=== PATIENT | female | born 1930 | race Caucasian/White ===

== ENCOUNTER 2017-09-02 10:48 | Inpatient (IN) ==
[2017-09-02] MEDS ORDERED: Ondansetron 4 MG/2 ML VIAL IVP ONE (11:34)
[2017-09-02] MEDS ORDERED: *HR* Morphine 2 MG/ML SYRINGE IVP ONE (11:34)
[2017-09-02] MEDS ORDERED: 0.9 % Sodium Chloride 500 ML IVC ONE (11:34)
--- NOTE | 2017-09-02 11:37 | Emergency Department Note ---
Disposition Clinical Impression: Pyelonephritis, Unable to ambulate Back pain Qualifiers: Back pain location: back pain in unspecified location Chronicity: acute Back pain laterality: left Qualified Code(s): M54.9 - Dorsalgia, unspecified CKD (chronic kidney disease) Qualifiers: Chronic kidney disease stage: stage 3 (moderate) Qualified Code(s): N18.3 - Chronic kidney disease, stage 3 (moderate) Disposition: Admitted As Inpatient Condition: Good Back Pain HPI - General Chief Complaint: ED Back Pain/Injury Stated Complaint: back pain Time Seen by Provider: 09/02/17 10:53 Source: patient Limitations: no limitations Nursing Notes Reviewed: Yes Vital Signs Reviewed: Yes - History of Present Illness HPI Narrative: Patient presents today for evaluation of back pain. Patient was seen 2 days ago and received a CT scan of her abdomen and pelvis as well as x-rays of her thoracic and lumbar spine. Patient had improved in the emergency department and was sent home. Patient states that the lidocaine patches she was sent home with have not been helping her pain at all. Patient lives at home alone is only able to take care of all of her activities of daily living. Patient symptoms started on Monday when she was at the counter washing. She states that there was no fall or no specific movement that causes the pain but that her pain is now worse anytime she moves. Pain has significantly limited her ability to do things. Patient rates pain as a 9 out of 10 in the bed and is having difficulty rolling onto her side or sitting up for evaluation. Pain with hip flexion. No radiation of pain. No worse after food or fluids Patient has not had any chest pain or shortness of breath. Patient states that she has had some constipation and decreased urinary output. Patient does not have a rash. No fever or chills. - Related Data Home Medications Medication Instructions Recorded Confirmed Aspirin [Lo-Dose Aspirin EC] 81 mg PO DAILY 10/02/16 09/02/17 Atorvastatin [Lipitor] 40 mg PO HS 10/02/16 09/02/17 Clopidogrel [Plavix] 75 mg PO DAILY 10/02/16 09/02/17 Levothyroxine [Synthroid] 100 mcg PO DAILY 10/02/16 09/02/17 Magnesium Oxide [Magnesium] 800 mg PO BID 10/02/16 09/02/17 Multivitamin [Multivitamins] 1 tab PO DAILY 10/02/16 09/02/17 Pantoprazole Sodium [Protonix] 40 mg PO DAILY 10/02/16 09/02/17 Ropinirole HCl [Requip] 0.5 mg PO HS 10/02/16 09/02/17 Ergocalciferol (VITAMIN D2) 50,000 unit PO SA 10/04/16 09/02/17 [Vitamin D2] Gabapentin [Neurontin] 200 mg PO BID 10/04/16 09/02/17 HYDROcodone/Acet 5/325 mg [[place] 1 tab PO Q6H PRN 10/04/16 09/02/17 5-325 mg] Acetaminophen/Diphenhydramine 2 tab PO HS PRN 09/02/17 09/02/17 [Acetaminophen Pm Caplet] Lidocaine Patch [Lidoderm 5% patch] 1 patch TP DAILY PRN 09/02/17 09/02/17 Metoprolol XL (24 HR) Succ [Toprol 12.5 mg PO DAILY 09/02/17 09/02/17 XL] Previous Rx's Medication Instructions Recorded LORazepam [Ativan] 0.5 mg PO QID PRN #30 tablet 03/27/16 Furosemide [Lasix] 20 mg PO DAILY #30 tablet 10/05/16 Nitroglycerin 0.4 mg SL Q5MIN PRN 30 Days 10/05/16 tab.subl Allergies Allergy/AdvReac Type Severity Reaction Status Date / Time metformin AdvReac See Verified 11/29/16 14:40 Comments Sulfa (Sulfonamide AdvReac Confusion Verified 11/29/16 14:40 Antibiotics) Tizanidine AdvReac Drowsy Verified 11/29/16 14:40 All systems ED: reviewed and negative except as stated. Constitutional: Denies: fever, chills Cardiovascular: Denies: chest pain Gastrointestinal: Denies: abdominal pain, nausea, vomiting Genitourinary: Reports: other (Decreased urinary output). Denies: urgency, frequency Musculoskeletal: Reports: back pain Integumentary: Denies: rash, abrasion, lesions Neurological: Reports: weakness (Secondary to back pain). Denies: headache Psychiatric: Denies: anxiety, depression Endocrine: Denies: fatigue Past Medical History - Past Medical History Medical history: Reports: arthritis, coronary artery disease, GERD, hyperlipidemia, hypertension, migraine, myocardial infarction Surgical history: Reports: , cholecystectomy, hip replacement, hysterectomy, knee replacement Psychiatric history: Reports: anxiety, depression EXTRACORPOREAL CIRCULATION SPECIALIST history: Reports: no EXTRACORPOREAL CIRCULATION SPECIALIST history - Social History Smoking Status: Former smoker Smokeless Tobacco Status: No Alcohol use: Reports: none Drug use: Reports: none Physical Exam - General Limitations: no limitations General appearance: alert, in no apparent distress Course Course Narrative: General appearance: NAD, conversant Eyes: anicteric sclerae, moist conjunctivae; PERRL HENT: Atraumatic; oropharynx clear with moist mucous membranes and no mucosal ulcerations Neck: Normal inspection; Trachea midline; FROM, supple Lungs: CTA, with normal respiratory effort and no intercostal retractions CV: Systolic heart murmur Abdomen: Soft, non-tender; no rebound or gaurding Extremities: No peripheral edema or extremity lymphadenopathy Skin: Normal temperature; no rash, ulcers or lesions Psych: Appropriate mood and affect Neuro: alert and oriented to person, place and time Musculoskeletal: No midline tenderness to the cervical thoracic or lumbar spine. Tenderness to palpation of the left lumbar paraspinal muscles as well as the superficial tissues. No rash present. Patient with wart of 5 strength to the left leg hip flexion secondary to pain. - Reevaluation(s) Reevaluation #1: Patient's pain improved with 4 mg of IV morphine. Patient's culture results from 2 days ago was positive for Escherichia coli as well as enterococcus. Both are sensitive to ampicillin. A dose of Zosyn and has been given in the emergency department. Patient CT scan cannot be performed with IV contrast to rule out any other complications. Renal ultrasound has been ordered. Hospitalist team paged Time: 12:33 - Consultations Consultation #1: Discussed with hospitalist. Zosyn changed to ampicillin 2 g. Zosyn had not yet been given. Blood Cultures requested and obtained. Time: 13:00 Vital Signs Temperature 98.4 F 09/02/17 10:49 Pulse Rate 70 09/02/17 10:49 Respiratory Rate 18 09/02/17 10:49 Blood Pressure 128/69 09/02/17 10:49 O2 Sat by Pulse Oximetry 99 09/02/17 10:49 Temperature 98.0 F 09/02/17 14:39 Pulse Rate 70 09/02/17 14:39 Respiratory Rate 14 09/02/17 14:39 Blood Pressure 136/75 09/02/17 14:39 O2 Sat by Pulse Oximetry 92 09/02/17 14:39 Oxygen Delivery Oxygen Delivery Room Air Back Pain/Injury - Lab Data Result diagrams: 09/02/17 11:42 09/02/17 11:42 Lab Results 09/02/17 09/02/17 09/02/17 Range/Units 11:42 11:42 11:42 WBC 5.0 (4.3-11.1) K/mcL RBC 3.40 L (3.82-4.97) M/mcL Hgb 11.1 L D (11.5-15.4) g/dL Hct 34.4 L (35.3-44.9) % MCV 101.2 H (83.0-100.0) fL MCH 32.6 (28.0-33.3) pg MCHC 32.3 (31.6-35.5) g/dL RDW 12.9 (11.5-14.5) % Plt Count 158 (140-400) K/mcL MPV 9.7 (9.4-12.4) fL Immature Gran % 0.2 (0-4) % Seg Neutrophils % 71.0 % Lymphocytes % 16.8 % Monocytes % 8.2 % Eosinophils % 3.2 % Basophils % 0.6 % Neutrophils # 3.6 (1.6-8.9) K/mcL Lymphocytes # 0.8 (0.6-4.6) K/mcL Monocytes # 0.4 (0.0-1.3) K/mcL Eosinophils # 0.2 (0.0-0.6) K/mcL Basophils # 0.0 (0.0-0.2) K/mcL Immature Plt Fraction 3.1 (1.1-6.1) % Sodium 138 (136-145) mEq/L Potassium 5.0 H (3.5-4.5) mEq/L Chloride 106 (98-109) mEq/L Carbon Dioxide 25 (19-29) mEq/L BUN 40 H (7-20) mg/dL Creatinine 1.37 H (0.57-1.11) mg/dL Est GFR ( Amer) 44 L (> 60) Est GFR (Non-Af Amer) 36 L (> 60) BUN/Creatinine Ratio 29 H (6-26) Glucose 125 H (70-99) mg/dL Calculated Osmolality 297 (280-300) Calcium 8.9 (8.6-10.8) mg/dL Magnesium 2.1 (1.6-2.6) mg/dL Total Bilirubin 0.4 (0.2-1.2) mg/dL Direct Bilirubin 0.2 (0.0-0.5) mg/dL Indirect Bilirubin 0.2 (0.0-1.2) mg/dL AST 30 (5-34) Units/L ALT 30 (0-55) Units/L Alkaline Phosphatase 191 H (38-126) Units/L Troponin I 0.08 H* (0-0.03) ng/mL Serum Total Protein 7.0 (6.0-8.3) g/dL Albumin 3.1 L (3.5-5.0) g/dL Globulin 3.9 H (2.4-3.5) g/dL Albumin/Globulin Ratio 0.8 L (1.1-2.2) Urine Color (Yellow) Urine Clarity (Clear) Urine pH (5.0-8.0) pH Units Ur Specific [place] (1.010-1.025) Urine Protein (Neg-Trace) mg/dL Urine Glucose (UA) (Normal) mg/dL Urine Ketones (Negative) mg/dL Urine Blood (Negative) Urine Nitrite (Negative) Urine Bilirubin (Negative) Urine Urobilinogen (Normal) mg/dL Ur Leukocyte Esterase (Negative) Urine Microscopic RBC (0-3) per hpf Urine Microscopic WBC (0-3) per hpf Ur Squamous Epith Cells (None-Few) per lpf Urine Bacteria (None-Few) per hpf Hyaline Casts (None-Few) per lpf Ur Culture Indicated? (NO) 09/02/17 Range/Units 11:56 WBC (4.3-11.1) K/mcL RBC (3.82-4.97) M/mcL Hgb (11.5-15.4) g/dL Hct (35.3-44.9) % MCV (83.0-100.0) fL MCH (28.0-33.3) pg MCHC (31.6-35.5) g/dL RDW (11.5-14.5) % Plt Count (140-400) K/mcL MPV (9.4-12.4) fL Immature Gran % (0-4) % Seg Neutrophils % % Lymphocytes % % Monocytes % % Eosinophils % % Basophils % % Neutrophils # (1.6-8.9) K/mcL Lymphocytes # (0.6-4.6) K/mcL Monocytes # (0.0-1.3) K/mcL Eosinophils # (0.0-0.6) K/mcL Basophils # (0.0-0.2) K/mcL Immature Plt Fraction (1.1-6.1) % Sodium (136-145) mEq/L Potassium (3.5-4.5) mEq/L Chloride (98-109) mEq/L Carbon Dioxide (19-29) mEq/L BUN (7-20) mg/dL Creatinine (0.57-1.11) mg/dL Est GFR ( Amer) (> 60) Est GFR (Non-Af Amer) (> 60) BUN/Creatinine Ratio (6-26) Glucose (70-99) mg/dL Calculated Osmolality (280-300) Calcium (8.6-10.8) mg/dL Magnesium (1.6-2.6) mg/dL Total Bilirubin (0.2-1.2) mg/dL Direct Bilirubin (0.0-0.5) mg/dL Indirect Bilirubin (0.0-1.2) mg/dL AST (5-34) Units/L ALT (0-55) Units/L Alkaline Phosphatase (38-126) Units/L Troponin I (0-0.03) ng/mL Serum Total Protein (6.0-8.3) g/dL Albumin (3.5-5.0) g/dL Globulin (2.4-3.5) g/dL Albumin/Globulin Ratio (1.1-2.2) Urine Color Yellow (Yellow) Urine Clarity Cloudy A (Clear) Urine pH 6.0 (5.0-8.0) pH Units Ur Specific [place] 1.023 (1.010-1.025) Urine Protein Negative (Neg-Trace) mg/dL Urine Glucose (UA) Normal (Normal) mg/dL Urine Ketones Negative (Negative) mg/dL Urine Blood Negative (Negative) Urine Nitrite Negative (Negative) Urine Bilirubin Negative (Negative) Urine Urobilinogen Normal (Normal) mg/dL Ur Leukocyte Esterase Moderate H (Negative) Urine Microscopic RBC 0-3 (0-3) per hpf Urine Microscopic WBC 5-15 H (0-3) per hpf Ur Squamous Epith Cells Many H (None-Few) per lpf Urine Bacteria None Seen (None-Few) per hpf Hyaline Casts None Seen (None-Few) per lpf Ur Culture Indicated? YES A (NO) Attestation Statement - Attestation Attestation: I examined this patient and my medical decision-making was reviewed with the Resident Physician. I agree with the documented findings, disposition and treatment plan as described except to the extent set forth below. Back pain. Urine culture suggesting underlying urinary tract infection. Possible pyelonephritis. Plan to admit for further evaluation of urinary tract infection in the setting of worsening back pain.
[2017-09-02 11:49] LABS: Basophils % 0.6 %; Eosinophils # 0.2 K/mcL (0.0-0.6); Eosinophils % 3.2 %; Hematocrit 34.4 % (35.3-44.9); Immature Granulocytes % 0.2 % (0-4); Immature Platelets 3.1 % (1.1-6.1); Lymphocytes # 0.8 K/mcL (0.6-4.6); Lymphocytes % 16.8 %; Mean Corpuscular HGB Conc 32.3 g/dL (31.6-35.5); Mean Corpuscular Hemoglobin 32.6 pg (28.0-33.3); Mean Corpuscular Volume 101.2 fL (83.0-100.0); Mean Platelet Volume 9.7 fL (9.4-12.4); Monocytes # 0.4 K/mcL (0.0-1.3); Monocytes % 8.2 %; Neutrophils # 3.6 K/mcL (1.6-8.9); Platelet Count 158 K/mcL (140-400); Red Cell Distribution Width 12.9 % (11.5-14.5)
[2017-09-02 11:50] LABS: Hemoglobin 11.1 g/dL (11.5-15.4)
[2017-09-02 12:01] LABS: Albumin 3.1 g/dL (3.5-5.0); Albumin/Globulin Ratio 0.8 (1.1-2.2); Bilirubin,Direct 0.2 mg/dL (0.0-0.5); Bilirubin,Indirect 0.2 mg/dL (0.0-1.2); Bilirubin,Total 0.4 mg/dL (0.2-1.2); Calcium 8.9 mg/dL (8.6-10.8); Globulin 3.9 g/dL (2.4-3.5); Magnesium 2.1 mg/dL (1.6-2.6)
[2017-09-02 12:07] LABS: Bilirubin,Urine Negative (Negative); Blood,Urine Negative (Negative); Clarity,Urine Cloudy (Clear); Color,Urine Yellow (Yellow); Glucose,Urine (UA) Normal (Normal); Ketones,Urine Negative (Negative); Leukocyte Esterase,Urine Moderate (Negative); Nitrite,Urine Negative (Negative); Protein,Urine Negative (Neg-Trace); Specific Gravity,Urine 1.023 (1.010-1.025); Urobilinogen,Urine Normal (Normal)
[2017-09-02 12:09] LABS: Bacteria,Urine None Seen per hpf (None-Few); Hyaline Casts,Urine None Seen per lpf (None-Few); RBC,Urine 0-3 per hpf (0-3); Squamous Epithelial Cell,Urine Many per lpf (None-Few)
[2017-09-02] MEDS ORDERED: Piperacillin/Tazobactam 3.375 GM in D5% in Water 50 ML IVPB ONE (12:26)
[2017-09-02] MEDS ORDERED: Ampicillin 2 GM in 0.9 % Sodium Chloride Mini Bag 100 ML IVPB ONE (12:59)
[2017-09-02] MEDS ORDERED: AMPICILLIN IVPB ONE (15:00)
[2017-09-02] MEDS ORDERED: SODIUM CHLORIDE 0.9% IVPB ONE (15:00)
[2017-09-02] MEDS ORDERED: Naloxone 0.4 MG/ML INJ IVP PRN (15:48)
[2017-09-02] MEDS ORDERED: *HR* LORazepam 0.5 MG TABLET PO PRN (15:51)
--- NOTE | 2017-09-02 15:52 | Internal Med History&Physical ---
Date of Encounter: 09/02/17 Time of Encounter: 15:52 Assessment and Plan (1) Elevated troponin Current visit: Yes Status: Acute Likely related to underlying infection, demand ischemia. (2) Back pain Current visit: Yes Status: Acute Probably related to left-sided pyelonephritis. Qualifiers: Back pain location: back pain in unspecified location Chronicity: acute Back pain laterality: left Qualified Code(s): M54.9 - Dorsalgia, unspecified (3) Pyelonephritis Current visit: Yes Status: Acute Urinalysis shows 5-15 WBC, moderate leukocyte esterase. Follow-up urine culture. Urine culture from August 31 grows Enterococcus faecalis and Escherichia coli. Continue IV ampicillin. IV hydration. Pain control with when necessary Percocet and IV morphine. Supportive care. We will repeat CT abdomen/pelvis if indicated. Renal ultrasound shows no obstructive nephropathy. (4) CKD (chronic kidney disease) Current visit: Yes Status: Chronic Serum creatinine noted to be at baseline, 1.37 today. Noted to have mild hyperkalemia. Continue to monitor closely. Renal diet. Qualifiers: Chronic kidney disease stage: stage 3 (moderate) Qualified Code(s): N18.3 - Chronic kidney disease, stage 3 (moderate) (5) Aortic stenosis, severe Current visit: Yes Status: Chronic Status post aortic valve replacement. (6) Congestive heart failure Current visit: Yes Status: Chronic Not in acute exacerbation. Continue home medications. Hold Lasix for now. Qualifiers: Congestive heart failure type: combined Congestive heart failure chronicity : chronic Qualified Code(s): I50.42 - Chronic combined systolic (congestive) and diastolic (congestive) heart failure (7) CAD (coronary artery disease) Current visit: Yes Status: Chronic Qualifiers: Coronary Disease-Associated Artery/Lesion type: [place] artery [place] vs. transplanted heart: [place] heart Associated angina: without angina Qualified Code(s): I25.10 - Atherosclerotic heart disease of [place] coronary artery without angina pectoris Internal Medicine - H&P: HPI Chief complaint: Left sided back pain Admitted From: Emergency Dept Plans for Post Hospital Care: Home History of present illness: Ms. Salcido is a 87 year old female with history of hypertension, chronic kidney disease, CHF presents with complaints of sudden onset of left flank and low back pain. Patient reports being in her usual state of health until 5 days ago when she was doing her laundry and developed a sudden onset of left-sided flank and low back pain, nonradiating, which has been progressively worsening, currently 10/10 in intensity. Her pain is constant and not associated with food intake but gets worse on turning in bed and getting out of bed. She denies fever, chills, nausea, vomiting, suprapubic pain. No hematuria, urinary frequency or urgency but reports decreased urine output over the last few days. She presented to the emergency room 2 days ago with these complaints, had x- rays of her lumbar spine and CT abdomen done which showed no acute abnormality and patient was discharged home. Her urine culture was sent at the time which currently is positive for enterococcus faecalis and Escherichia coli. Past Med Surg Social Fam HX - Past Medical History Medical history: arthritis, CHF, coronary artery disease, GERD, hyperlipidemia, hypertension, myocardial infarction, renal disease Psychiatric history: anxiety, depression - Past Surgical History Surgical History: , cholecystectomy, heart valve replacement (aortic valve- TAVR), hysterectomy, knee replacement (B/L) - Social History Smoking Status: Former smoker Smokeless Tobacco Status: No Alcohol use: none Drug use: none Occupational status: retired Current living situation: Home - Independent Activity Level: Independent ambulation Recent Out of Country Travel Within the Last 8 Weeks: No Exposure or Possible Exposure to Illness During Travel: No - Family History Mother Living Status: Hx Family Cancer: Yes Father Hx Family Cardiac Disorders: Yes Internal Medicine - H&P: Meds LORazepam [Ativan] 0.5 mg PO QID PRN #30 tablet 03/27/16 [Rx] Aspirin [Lo-Dose Aspirin EC] 81 mg PO DAILY 10/02/16 [History] Atorvastatin [Lipitor] 40 mg PO HS 10/02/16 [History] Clopidogrel [Plavix] 75 mg PO DAILY 10/02/16 [History] Levothyroxine [Synthroid] 100 mcg PO DAILY 10/02/16 [History] Magnesium Oxide [Magnesium] 800 mg PO BID 10/02/16 [History] Multivitamin [Multivitamins] 1 tab PO DAILY 10/02/16 [History] Pantoprazole Sodium [Protonix] 40 mg PO DAILY 10/02/16 [History] Ropinirole HCl [Requip] 0.5 mg PO HS 10/02/16 [History] Ergocalciferol (VITAMIN D2) [Vitamin D2] 50,000 unit PO SA 10/04/16 [History] Gabapentin [Neurontin] 200 mg PO BID 10/04/16 [History] HYDROcodone/Acet 5/325 mg [[place] 5-325 mg] 1 tab PO Q6H PRN 10/04/16 [History] Furosemide [Lasix] 20 mg PO DAILY #30 tablet 10/05/16 [Rx] Nitroglycerin 0.4 mg SL Q5MIN PRN 30 Days tab.subl 10/05/16 [Rx] Acetaminophen/Diphenhydramine [Acetaminophen Pm Caplet] 2 tab PO HS PRN [History] Lidocaine Patch [Lidoderm 5% patch] 1 patch TP DAILY PRN 09/02/17 [History] Metoprolol XL (24 HR) Succ [Toprol XL] 12.5 mg PO DAILY 09/02/17 [History] 3 Allergy/AdvReac Type Severity Reaction Status Date / Time metformin AdvReac See Verified 11/29/16 14:40 Comments Sulfa (Sulfonamide AdvReac Confusion Verified 11/29/16 14:40 Antibiotics) Tizanidine AdvReac Drowsy Verified 11/29/16 14:40 All Systems PM: A 10-system review of systems was performed and is negative for pertinent findings except as documented above in the HPI. - Constitutional Constitutional: no chills, no fever(s), no night sweats - EENT Eyes: no change in vision, no discharge, no pain, no photophobia Ears: no ear discharge, no ear pain, no tinnitus Nose, mouth and throat: no dysphagia, no nasal discharge, no neck pain, no sore throat - Cardiovascular Cardiovascular ROS IM: no chest pain, no diaphoresis, no dyspnea, no lightheadedness, no palpitations, no syncope - Respiratory Respiratory: no cough, no dyspnea, no wheezing, no excessive phlegm production - Gastrointestinal Gastrointestinal: no abdominal pain, no diarrhea, no hematemesis, no hematochezia, no melena, no nausea, no vomiting - Genitourinary Genitourinary: no change in urinary stream, no dysuria, no flank pain, no hematuria - Musculoskeletal Musculoskeletal ROS IM: back pain - Integumentary Integumentary IM: no rash, no unusual bruising - Neurological Neurological ROS: no confusion, no convulsions, no focal weakness, no numbness, no tingling, no tremor(s) - Hematologic/Lymphatic Hematologic/Lymphatic: no easy bruising - Constitutional Vitals: Temp Pulse Resp BP Pulse Ox 98.0 F 70 14 136/75 92 09/02/17 14:39 09/02/17 14:39 09/02/17 14:39 09/02/17 14:39 09/02/17 14:39 General appearance: Present: mild distress, A&O X 3, answers questions appropriately - Respiratory Respiratory exam: Present: CTAB. Absent: accessory muscle use, rales, rhonchi, wheezes - Cardiovascular Cardiovascular exam: Present: RRR, +S1, +S2, systolic murmur. Absent: diastolic murmur, gallop, rubs - GI/Abdominal GI/Abdominal exam: Present: normal bowel sounds, soft, no peritoneal signs. Absent: distended, tenderness - Extremities Exam Extremities exam: Present: full ROM, warm, radial pulses palpable and symmetrical. Absent: calf tenderness, cyanotic, pedal edema - Back Exam Back exam: Present: CVA tenderness (L) Additional comments: No midline or vertebral tenderness - Neurological Exam Neurological exam: Present: CN II-XII intact, oriented X3, no focal deficits. Absent: pronater drift, facial droop, speech deficit - Skin Skin exam: Present: dry, intact Internal Med - H&P Results - Labs CBC & Chem 7: 09/03/17 03:37 09/03/17 03:37
[2017-09-02] MEDS ORDERED: 0.9 % Sodium Chloride 1,000 ML IVC SCH (16:00)
[2017-09-02] MEDS: *HR* Morphine 2 MG/ML SYRINGE IVP PRN (17:02)
[2017-09-02] MEDS: *HR* Heparin 5,000 UNIT/ML VIAL SQ SCH (18:49)
[2017-09-02] MEDS: rOPINIRole 0.25 MG TABLET PO SCH (20:57)
[2017-09-02] MEDS ORDERED: AMPICILLIN IVPB SCH (21:00)
[2017-09-02] MEDS ORDERED: SODIUM CHLORIDE 0.9% IVPB SCH (21:00)
[2017-09-03] MEDS: *HR* Morphine 2 MG/ML SYRINGE IVP PRN ×4 (02:01→21:55)
[2017-09-03] MEDS: AMPICILLIN IVPB SCH ×4 (02:44→20:19)
[2017-09-03] MEDS: SODIUM CHLORIDE 0.9% IVPB SCH ×4 (02:44→20:19)
[2017-09-03 04:16] LABS: Basophils % 0.5 %; Eosinophils # 0.3 K/mcL (0.0-0.6); Eosinophils % 6.7 %; Hemoglobin 10.6 g/dL (11.5-15.4); Immature Granulocytes % 0.3 % (0-4); Lymphocytes % 24.8 %; Mean Corpuscular HGB Conc 31.2 g/dL (31.6-35.5); Mean Corpuscular Hemoglobin 31.7 pg (28.0-33.3); Mean Corpuscular Volume 101.8 fL (83.0-100.0); Mean Platelet Volume 10.4 fL (9.4-12.4); Monocytes # 0.4 K/mcL (0.0-1.3); Monocytes % 11.1 %; Neutrophils # 2.2 K/mcL (1.6-8.9); Platelet Count 140 K/mcL (140-400); Red Blood Count 3.34 M/mcL (3.82-4.97); Red Cell Distribution Width 12.8 % (11.5-14.5); Segmented Neutrophils % 56.6 %
[2017-09-03 04:27] LABS: Calcium 9.1 mg/dL (8.6-10.8); Potassium 4.9 mEq/L (3.5-4.5)
[2017-09-03] MEDS: *HR* Heparin 5,000 UNIT/ML VIAL SQ SCH ×2 (05:10→18:39)
[2017-09-03] MEDS: Metoprolol XL (24 HR) Succ 25 MG TAB.ER.24H PO SCH (08:18)
[2017-09-03] MEDS: Multivit/Ca/Min/Fe/FA 1 TAB TABLET PO SCH (08:18)
[2017-09-03] MEDS: Aspirin Enteric Coated 81 MG Tablet PO SCH (08:18)
--- NOTE | 2017-09-03 12:11 | Internal Med Progress Note ---
Date of Encounter: 09/03/17 Time of Encounter: 12:08 - Assessment and plan (1) Back pain Current Visit: Yes Status: Acute Assessment and plan: Likely related to pyelonephritis. However, patient continues to report persistent back pain despite treatment with IV antibiotics. Will check noncontrast CT of lumbar spine. Pain control with when necessary IV Dilaudid and oral Percocet. Supportive care. Qualifiers: Back pain location: back pain in unspecified location Chronicity: acute Back pain laterality: left Qualified Code(s): M54.9 - Dorsalgia, unspecified (2) Pyelonephritis Current Visit: Yes Status: Acute Assessment and plan: Plan as above. Not septic. Urine culture grows enterococcus, continue IV ampicillin. Blood cultures remain negative. (3) CKD (chronic kidney disease) Current Visit: Yes Status: Chronic Qualifiers: Chronic kidney disease stage: stage 3 (moderate) Qualified Code(s): N18.3 - Chronic kidney disease, stage 3 (moderate) (4) Aortic stenosis, severe Current Visit: Yes Status: Chronic (5) Congestive heart failure Current Visit: Yes Status: Chronic Qualifiers: Congestive heart failure type: combined Congestive heart failure chronicity : chronic Qualified Code(s): I50.42 - Chronic combined systolic (congestive) and diastolic (congestive) heart failure (6) CAD (coronary artery disease) Current Visit: Yes Status: Chronic Qualifiers: Coronary Disease-Associated Artery/Lesion type: [place] artery [place] vs. transplanted heart: [place] heart Associated angina: without angina Qualified Code(s): I25.10 - Atherosclerotic heart disease of [place] coronary artery without angina pectoris - Subjective Interval history: Continues to report left flank/low back pain; could not sleep well last night due to pain; no fever/chills, nausea, vomiting; - Constitutional Vitals: Temp Pulse Resp BP Pulse Ox 97.5 F L 70 14 95/56 98 09/03/17 10:51 09/03/17 10:51 09/03/17 10:51 09/03/17 10:51 09/03/17 10:51 General appearance: Present: A&O X 3, answers questions appropriately - Respiratory Respiratory exam: Present: CTAB. Absent: accessory muscle use, rales, rhonchi, wheezes - Cardiovascular Cardiovascular exam: Present: RRR, +S1, +S2, systolic murmur. Absent: diastolic murmur, gallop, rubs - GI/Abdominal GI/Abdominal exam: Present: normal bowel sounds, soft, no peritoneal signs. Absent: distended, tenderness - Extremities Exam Extremities exam: Present: full ROM, warm, radial pulses palpable and symmetrical. Absent: calf tenderness, cyanotic, pedal edema - Back Exam Back exam: Present: CVA tenderness (L) Internal Medicine: Result - Labs CBC & Chem 7: 09/03/17 03:37 09/03/17 03:37 Labs: Short CBC 09/03/17 Range/Units 03:37 WBC 3.9 L (4.3-11.1) K/mcL Hgb 10.6 L (11.5-15.4) g/dL Hct 34.0 L (35.3-44.9) % Plt Count 140 (140-400) K/mcL Neutrophils # 2.2 (1.6-8.9) K/mcL BMP 09/03/17 03:37 Sodium 138 Potassium 4.9 H Chloride 106 Carbon Dioxide 27 BUN 31 H Creatinine 1.36 H Glucose 88 Calcium 9.1 Consult Discharge Plan - Plan Referrals: Ramsey Chase MD [Primary Care Provider] -
[2017-09-03] MEDS: rOPINIRole 0.25 MG TABLET PO SCH (20:19)
[2017-09-03] MEDS: Ondansetron 4 MG/2 ML VIAL IVP PRN (23:30)
[2017-09-04] MEDS: AMPICILLIN IVPB SCH ×2 (02:58→10:35)
[2017-09-04] MEDS: SODIUM CHLORIDE 0.9% IVPB SCH ×2 (02:58→10:35)
[2017-09-04] MEDS: *HR* Heparin 5,000 UNIT/ML VIAL SQ SCH ×2 (05:31→17:10)
[2017-09-04] MEDS: *HR* Morphine 2 MG/ML SYRINGE IVP PRN (06:04)
[2017-09-04] MEDS: Ondansetron 4 MG/2 ML VIAL IVP PRN (08:10)
[2017-09-04] MEDS: Acetaminophen 325 MG TABLET PO PRN (08:14)
[2017-09-04] MEDS: Aspirin Enteric Coated 81 MG Tablet PO SCH (10:34)
[2017-09-04] MEDS: Metoprolol XL (24 HR) Succ 25 MG TAB.ER.24H PO SCH (10:34)
[2017-09-04] MEDS: Multivit/Ca/Min/Fe/FA 1 TAB TABLET PO SCH (10:35)
[2017-09-04] MEDS: *HR* OxyCODONE Immed Rel 5 MG TABLET PO PRN (10:48)
--- NOTE | 2017-09-04 13:10 | Electrocardiograph Report ---
[address] [place] [address] Test Date: 2017-09-03 Pat Name: Amanda Salcido Department: 115 Room: 3A37 Gender: F [employer]: HSIV : [id number] Requested By: Claudine Tyler Order Number: [id number] Reading MD: Priscila Brian Measurements Intervals [place] Rate: 67 P: 44 [place]: 188 QRS: -69 QRSD: 180 T: 102 QT: 479 QTc: 495 Interpretive Statements ELECTRONIC VENTRICULAR PACEMAKER ABNORMAL RHYTHM ECG Electronically Signed On 09-04-2017 12:51:29 EST by Priscila Brian
--- NOTE | 2017-09-04 14:31 | Internal Med Progress Note ---
Date of Encounter: 09/04/17 Time of Encounter: 14:29 - Assessment and plan (1) Acute cystitis Current Visit: Yes Status: Acute Assessment and plan: With enterococcus. Patient does not appear to be having pyelonephritis as she does not have any fever, leukocytosis or any major in findings concerning for pyelonephritis. Most likely dealing with lower urinary tract infection. Will place patient on oral amoxicillin. Will complete 5 more days of antibiotics. Qualifiers: Hematuria presence: without hematuria Qualified Code(s): N30.00 - Acute cystitis without hematuria (2) Back pain Current Visit: Yes Status: Acute Assessment and plan: Acute on chronic back pain. Lumbar spine CT severe multilevel spondylosis and moderate central stenosis at L3-4 and L4-5. There is also disc protrusion at L4 -5 on the right. This is most likely cause of patient's back pain. Would recommend outpatient follow-up with pain management to see if she is a candidate for epidural injections to control her pain. Currently patient does not have any focal deficits. Qualifiers: Back pain location: back pain in unspecified location Chronicity: acute Back pain laterality: left Qualified Code(s): M54.9 - Dorsalgia, unspecified (3) Pyelonephritis Current Visit: Yes Status: Ruled-out Assessment and plan: No clinical or imaging findings concerning for pyelonephritis. (4) Aortic stenosis, severe Current Visit: Yes Status: Chronic Assessment and plan: Continue home medications. Follow up with cardiology as outpatient (5) CAD (coronary artery disease) Current Visit: Yes Status: Chronic Assessment and plan: On aspirin, Plavix and statin. No chest pain. Qualifiers: Coronary Disease-Associated Artery/Lesion type: [place] artery [place] vs. transplanted heart: [place] heart Associated angina: without angina Qualified Code(s): I25.10 - Atherosclerotic heart disease of [place] coronary artery without angina pectoris (6) CKD (chronic kidney disease) stage 3, GFR 30-59 ml/min Current Visit: Yes Status: Chronic Assessment and plan: stable. Avoid nephrotoxic agents (7) Diarrhea Current Visit: Yes Status: Acute Assessment and plan: Most likely due to adverse reaction from ampicillin use. We will place patient on cultural. If persists, consider checking stool for C. difficile. Qualifiers: Diarrhea type: unspecified type Qualified Code(s): R19.7 - Diarrhea, unspecified (8) Nausea Current Visit: Yes Status: Acute Assessment and plan: Will treat with antiemetics as needed. - Subjective Interval history: Patient seen earlier today. Has multiple complaints including a headache, back pain and abdominal discomfort and nausea and generalized malaise. No fever or chills reported overnight. She has not eaten anything this morning because she is afraid of vomiting it up. Also reports diarrhea. - Constitutional Vitals: Temp Pulse Resp BP Pulse Ox 97.5 F L 66 14 121/67 95 09/04/17 10:23 09/04/17 10:23 09/04/17 10:23 09/04/17 10:23 09/04/17 10:23 General appearance: Present: mild distress, A&O X 3, answers questions appropriately - Neck Neck exam general surgery: Present: supple, trachea midline. Absent: lymphadenopathy - Respiratory Respiratory exam: Present: CTAB. Absent: accessory muscle use, rales, rhonchi, wheezes - Cardiovascular Cardiovascular exam: Present: RRR, +S1, +S2. Absent: diastolic murmur, gallop, rubs, systolic murmur - GI/Abdominal GI/Abdominal exam: Present: normal bowel sounds, soft, no peritoneal signs. Absent: distended, tenderness - Extremities Exam Extremities exam: Present: warm, radial pulses palpable and symmetrical. Absent : calf tenderness, cyanotic, pedal edema - Back Exam Back exam: Present: paraspinal tenderness - Neurological Exam Neurological exam: Present: alert, oriented X3, no focal deficits. Absent: facial droop, speech deficit Internal Medicine: Result - Labs CBC & Chem 7: 09/03/17 03:37 09/03/17 03:37 - Impressions Impressions Lumbar Spine CT 09/03/17 12:12 IMPRESSION: No acute fracture or subluxation. Severe, multilevel spondylosis. There is moderate central stenosis at L3-4 and L4-5. Additionally at L4-5 there is a right paracentral component of disc protrusion, which is difficult to quantitate by non contrasted CT. Impingement on the traversing right L5 nerve root is possible. D/ / Samir Stevenson MD / Samir Stevenson MD Interpreting Provider: Samir Stevenson MD Consult Discharge Plan - Plan Referrals: Ramsey Chase MD [Primary Care Provider] -
[2017-09-04] MEDS: Amoxicillin 500 MG CAPSULE PO SCH ×2 (14:36→20:56)
[2017-09-04] MEDS ORDERED: Nitrofurantoin (BID) 100 MG CAPSULE PO SCH ×2 (17:00)
[2017-09-04] MEDS: Lactobacillus 1 EACH CAP.SPRINK PO SCH (20:56)
[2017-09-04] MEDS: rOPINIRole 0.25 MG TABLET PO SCH (20:56)
[2017-09-05] MEDS: *HR* OxyCODONE Immed Rel 5 MG TABLET PO PRN ×2 (02:14→08:04)
[2017-09-05 04:35] LABS: Basophils % 0.2 %; Eosinophils # 0.1 K/mcL (0.0-0.6); Hematocrit 34.6 % (35.3-44.9); Hemoglobin 10.9 g/dL (11.5-15.4); Immature Granulocytes % 0.2 % (0-4); Lymphocytes # 0.9 K/mcL (0.6-4.6); Lymphocytes % 23.2 %; Mean Corpuscular HGB Conc 31.5 g/dL (31.6-35.5); Mean Corpuscular Hemoglobin 31.8 pg (28.0-33.3); Mean Corpuscular Volume 100.9 fL (83.0-100.0); Mean Platelet Volume 10.3 fL (9.4-12.4); Monocytes # 0.3 K/mcL (0.0-1.3); Monocytes % 7.4 %; Neutrophils # 2.7 K/mcL (1.6-8.9); Platelet Count 146 K/mcL (140-400); Red Blood Count 3.43 M/mcL (3.82-4.97); Red Cell Distribution Width 12.9 % (11.5-14.5)
[2017-09-05 04:45] LABS: Potassium 4.8 mEq/L (3.5-4.5)
[2017-09-05] MEDS: *HR* Heparin 5,000 UNIT/ML VIAL SQ SCH (05:23)
[2017-09-05] MEDS: Amoxicillin 500 MG CAPSULE PO SCH (08:06)
[2017-09-05] MEDS: Multivit/Ca/Min/Fe/FA 1 TAB TABLET PO SCH (08:06)
[2017-09-05] MEDS: Metoprolol XL (24 HR) Succ 25 MG TAB.ER.24H PO SCH (08:06)
[2017-09-05] MEDS: Lactobacillus 1 EACH CAP.SPRINK PO SCH (08:06)
[2017-09-05] MEDS: Aspirin Enteric Coated 81 MG Tablet PO SCH (08:06)
[2017-09-05] MEDS: Acetaminophen 325 MG TABLET PO PRN (12:05)
[2017-09-05 12:52] VITALS: BP 137/83
--- NOTE | 2017-09-05 15:23 | Discharge Summary ---
Date of Encounter: 09/05/17 Time of Encounter: 15:17 - Discharge Diagnosis (1) Pyelonephritis Priority: Primary Status: Acute (2) Back pain Priority: Secondary Status: Acute Qualifiers: Back pain location: back pain in unspecified location Chronicity: acute Back pain laterality: left Qualified Code(s): M54.9 - Dorsalgia, unspecified (3) Aortic stenosis, severe Priority: Secondary Status: Chronic (4) CKD (chronic kidney disease) stage 3, GFR 30-59 ml/min Priority: Secondary Status: Chronic - Discharge Medications Prescriptions: Amoxicillin [Amoxil] 500 mg PO BID #20 capsule HYDROcodone/Acet 5/325 mg [[place] 5-325 mg] 1 tab PO Q6H PRN #20 tablet PRN Reason: Pain Home Medications: LORazepam [Ativan] 0.5 mg PO QID PRN #30 tablet 03/27/16 [Rx] Aspirin [Lo-Dose Aspirin EC] 81 mg PO DAILY 10/02/16 [History] Atorvastatin [Lipitor] 40 mg PO HS 10/02/16 [History] Clopidogrel [Plavix] 75 mg PO DAILY 10/02/16 [History] Levothyroxine [Synthroid] 100 mcg PO DAILY 10/02/16 [History] Magnesium Oxide [Magnesium] 800 mg PO BID 10/02/16 [History] Multivitamin [Multivitamins] 1 tab PO DAILY 10/02/16 [History] Pantoprazole Sodium [Protonix] 40 mg PO DAILY 10/02/16 [History] Ropinirole HCl [Requip] 0.5 mg PO HS 10/02/16 [History] Ergocalciferol (VITAMIN D2) [Vitamin D2] 50,000 unit PO SA 10/04/16 [History] Gabapentin [Neurontin] 200 mg PO BID 10/04/16 [History] Furosemide [Lasix] 20 mg PO DAILY #30 tablet 10/05/16 [Rx] Nitroglycerin 0.4 mg SL Q5MIN PRN 30 Days tab.subl 10/05/16 [Rx] Acetaminophen/Diphenhydramine [Acetaminophen Pm Caplet] 2 tab PO HS PRN [History] Lidocaine Patch [Lidoderm 5% patch] 1 patch TP DAILY PRN 09/02/17 [History] Metoprolol XL (24 HR) Succ [Toprol Xl] 12.5 mg PO DAILY 09/02/17 [History] Amoxicillin [Amoxil] 500 mg PO BID #20 capsule 09/05/17 [Rx] HYDROcodone/Acet 5/325 mg [[place] 5-325 mg] 1 tab PO Q6H PRN #20 tablet 09/05/17 [Rx] Allergies/Adverse Reactions: 3 Allergy/AdvReac Type Severity Reaction Status Date / Time metformin AdvReac See Verified 11/29/16 14:40 Comments Sulfa (Sulfonamide AdvReac Confusion Verified 11/29/16 14:40 Antibiotics) Tizanidine AdvReac Drowsy Verified 11/29/16 14:40 Procedures/tests Complete & Pending: Procedures Performed prior 72 hours Category Date Time Status CT lumbar spine wo con [CT] Stat Cat Scan 09/03/17 12:12 Completed EKG [ECG 12 lead ECG] [ECG] Stat Y 09/03/17 13:16 Completed Date of admission: 09/02/17 15:48 Primary care physician: Ramsey Chase MD Consults: 09/04/17 14:36 Consult to Occupational Therapy [CONS] Routine Comment: Evaluate, develop and implement POC Reason for Consult: Evaluate for home safety Consult to Physical Therapy [CONS] Routine Comment: Evaluate, develop and implement POC Reason for Consult: Evaluate for home safety 09/04/17 14:37 Consult to Under Cutter [CONS] Routine Reason for SW Consult: Discharge planning Discharging clinician: Catalina Morris Anticipated date of discharge: 09/05/17 - Patient Status Disposition: Home, Self-Care Condition: Good Overall status at discharge: patient is back to baseline - Discharge Instructions Follow Up With: Ramsey Chase MD [Primary Care Provider] - - Diet and Activity Activity: increase activity as tolerated Diet: advance to your usual diet Hospital course: Ms. Salcido is a 87 year old female admitted for pyelonephritis and is started on antibiotics. Urine culture showed enterococcus sensitive to penicillin and therefore switched to amoxicillin. She was complaining of chronic pain in her back therefore a CT lumbar spine done which showed severe multilevel spondylosis and moderate central stenosis at L3-4 and L4-5. Disc protrusion at L4-5 on the right. We have recommend outpatient follow-up with pain management to see if she is a candidate for epidural injections to control her pain however since she has an infection currently she would not be a candidate for epidural injection right now. Physical therapy might help she should contact with her family doctor in this regard. - Time Spent with Patient Total time spent providing and/or coordinating discharge services: Greater than 30 minutes - Constitutional Vitals: Temp Pulse Resp BP Pulse Ox 98.2 F 80 18 137/83 96 09/05/17 12:46 09/05/17 12:46 09/05/17 12:46 09/05/17 12:46 09/05/17 12:46 General appearance: Present: A&O X 3, answers questions appropriately - Head Head exam: Present: atraumatic, normocephalic - Eye Eye exam: Present: PERRL, conjuntiva pink, sclera anicteric Pupils: Present: PERRL - Neck Neck exam general surgery: Present: supple, trachea midline. Absent: lymphadenopathy - Respiratory Respiratory exam: Present: CTAB. Absent: accessory muscle use, rales, rhonchi, wheezes - Cardiovascular Cardiovascular exam: Present: RRR, +S1, +S2. Absent: diastolic murmur, gallop, rubs, systolic murmur - GI/Abdominal GI/Abdominal exam: Present: normal bowel sounds, soft, no peritoneal signs. Absent: distended, tenderness - Extremities Exam Extremities exam: Present: warm, radial pulses palpable and symmetrical. Absent : calf tenderness, cyanotic, pedal edema - Neurological Exam Neurological exam: Present: CN II-XII intact, oriented X3, no focal deficits. Absent: pronater drift, facial droop, speech deficit - Skin Skin exam: Present: dry, intact
[2017-09-05] MEDS ORDERED: Gabapentin 100 MG CAPSULE PO SCH (21:00)
== END 2017-09-05 17:44 | disposition home or self-care (01) | DRG 690 ==
LOC: EMEROO 10:48 → 3ANU 10:48 → SUATTDRO 15:48
PROVIDERS: ADMIT Student in an Organized Health Care Education/Training Program; ATTEND Internal Medicine

== ENCOUNTER 2018-04-05 15:15 | Inpatient (IN) ==
[2018-04-05] MEDS ORDERED: *HR* FentaNYL (PF) 100 MCG/2 ML VIAL IVP ONE ×2 (15:22→21:46)
[2018-04-05 15:46] LABS: Basophils % 0.8 %; Eosinophils # 0.2 K/mcL (0.0-0.6); Eosinophils % 4.4 %; Hematocrit 37.7 % (35.3-44.9); Immature Granulocytes % 0.2 % (0-4); Lymphocytes # 0.8 K/mcL (0.6-4.6); Lymphocytes % 15.3 %; Mean Corpuscular HGB Conc 31.8 g/dL (31.6-35.5); Mean Corpuscular Hemoglobin 32.4 pg (28.0-33.3); Mean Corpuscular Volume 101.9 fL (83.0-100.0); Mean Platelet Volume 9.7 fL (9.4-12.4); Monocytes # 0.5 K/mcL (0.0-1.3); Monocytes % 8.9 %; Neutrophils # 3.7 K/mcL (1.6-8.9); Platelet Count 148 K/mcL (140-400); Red Cell Distribution Width 12.3 % (11.5-14.5); Segmented Neutrophils % 70.4 %
[2018-04-05 15:55] LABS: INR 1.1; Prothrombin Time 11.7 Seconds (9.4-12.1)
[2018-04-05 15:58] LABS: Activated Partial Thrombo Time 34.8 Seconds (26.0-36.0)
[2018-04-05 15:58] LABS: Calcium 9.4 mg/dL (8.6-10.3); Potassium 4.6 mEq/L (3.5-5.1)
--- NOTE | 2018-04-05 16:57 | Emergency Department Note ---
Disposition Clinical Impression: Subcapital fracture of left hip Qualifiers: Encounter type: initial encounter Fracture type: closed Qualified Code(s): S72.012A - Unspecified intracapsular fracture of left femur, initial encounter for closed fracture Disposition: Admitted As Inpatient Condition: Fair Time of Disposition: 17:05 General Adult HPI - General Chief complaint: ED Extremity Injury, Lower Stated complaint: Hip pain Time Seen by Provider: 04/05/18 15:21 Source: EMS Limitations: no limitations Nursing Notes Reviewed: Yes Vital Signs Reviewed: Yes - History of Present Illness HPI Narrative: 87-year-old female presents emergency room for left leg pain. States she woke up this morning he got out of bed and was having left hip pain. Symptoms got worse today at [employer] while shopping with her family. States the pain started in her left hip and radiating down to the left femur. She denies trauma. No falls. No other associated symptoms. She does have a history of neuropathy. She denies any other complaints at this time. Previous right hip repair/ replacement. Pain Scale: 7 - Related Data Home Medications Medication Instructions Recorded Confirmed Aspirin [Lo-Dose Aspirin EC] 81 mg PO DAILY 10/02/16 09/02/17 Atorvastatin [Lipitor] 40 mg PO HS 10/02/16 09/02/17 Clopidogrel [Plavix] 75 mg PO DAILY 10/02/16 09/02/17 Levothyroxine [Synthroid] 100 mcg PO DAILY 10/02/16 09/02/17 Magnesium Oxide [Magnesium] 800 mg PO BID 10/02/16 09/02/17 Multivitamin [Multivitamins] 1 tab PO DAILY 10/02/16 09/02/17 Pantoprazole Sodium [Protonix] 40 mg PO DAILY 10/02/16 09/02/17 Ropinirole HCl [Requip] 0.5 mg PO HS 10/02/16 09/02/17 Ergocalciferol (VITAMIN D2) 50,000 unit PO SA 10/04/16 09/02/17 [Vitamin D2] Gabapentin [Neurontin] 200 mg PO BID 10/04/16 09/02/17 Acetaminophen/Diphenhydramine 2 tab PO HS PRN 09/02/17 09/02/17 [Acetaminophen Pm Caplet] Lidocaine Patch [Lidoderm 5% patch] 1 patch TP DAILY PRN 09/02/17 09/02/17 Metoprolol XL (24 HR) Succ [Toprol 12.5 mg PO DAILY 09/02/17 09/02/17 Xl] Previous Rx's Medication Instructions Recorded LORazepam [Ativan] 0.5 mg PO QID PRN #30 tablet 03/27/16 Furosemide [Lasix] 20 mg PO DAILY #30 tablet 10/05/16 Nitroglycerin 0.4 mg SL Q5MIN PRN 30 Days 10/05/16 tab.subl HYDROcodone/Acet 5/325 mg [[place] 1 tab PO Q6H PRN #20 tablet 09/05/17 5-325 mg] Amoxicillin 875 mg PO BID #20 tablet 10/07/17 Benzonatate [Tessalon] 200 mg PO TID PRN #20 capsule 10/07/17 Allergies Allergy/AdvReac Type Severity Reaction Status Date / Time metformin Allergy See Verified 04/05/18 17:34 Comments Sulfa (Sulfonamide AdvReac Confusion Verified 04/05/18 17:34 Antibiotics) Tizanidine AdvReac Drowsy Verified 04/05/18 17:34 All systems ED: reviewed and negative except as stated. Constitutional: Reports: as per HPI. Denies: fever, chills Eyes: Denies: as per HPI Cardiovascular: Denies: chest pain, palpitations Respiratory: Denies: cough, dyspnea Gastrointestinal: Denies: abdominal pain, nausea Genitourinary: Reports: as per HPI Musculoskeletal: Reports: as per HPI, arthralgia Integumentary: Reports: as per HPI Neurological: Reports: as per HPI Psychiatric: Reports: as per HPI Endocrine: Reports: as per HPI Hematological/Lymphatic: Reports: as per HPI Past Medical History - Past Medical History Medical history: Reports: arthritis, CHF, coronary artery disease, GERD, hyperlipidemia, hypertension, myocardial infarction, renal disease Surgical history: Reports: , cholecystectomy, 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), hysterectomy, knee replacement (B/L) Psychiatric history: Reports: anxiety, depression FLUME TENDER history: Reports: no FLUME TENDER history - Social History Smoking Status: Never smoker Smokeless Tobacco Status: No Alcohol use: Reports: none Drug use: Reports: none Physical Exam - General Limitations: no limitations General appearance: alert, anxious - Head Head exam: atraumatic, normocephalic - Eye Eye exam: Present: normal appearance - ENT ENT exam: normal exam - Neck Neck exam: Present: normal inspection - Chest Chest inspection: Present: normal inspection - Respiratory Respiratory exam: Present: normal lung sounds bilaterally - Cardiovascular Cardiovascular exam: Present: regular rate, normal rhythm, normal heart sounds - Abdominal Exam Abdominal exam: Present: soft, Non-Tender, normal bowel sounds - Expanded Lower Extremity Exam Hip/Pelvis exam: Present: tenderness, crepitus, other (Severe pain on palpation of the left hip along the greater trochanter region. Decreased range of motion. ). Absent: dislocation, erythema Knee exam: Present: tenderness Lower leg exam: Present: normal inspection Ankle exam: Present: normal inspection Neurovascular/Tendon exam: Present: normal capillary refill - Neurological Exam Neurological exam: Present: alert, oriented X3 - Psychiatric Psychiatric exam: Present: normal affect - Skin Skin exam: Present: warm, dry, intact Course Vital Signs Temperature 97.4 F L 04/05/18 15:17 Pulse Rate 95 04/05/18 15:17 Respiratory Rate 20 04/05/18 15:17 Blood Pressure 162/97 04/05/18 15:17 O2 Sat by Pulse Oximetry 96 04/05/18 15:17 Temperature 97.4 F L 04/05/18 15:17 Pulse Rate 81 04/05/18 16:18 Respiratory Rate 18 04/05/18 16:18 Blood Pressure 146/107 04/05/18 16:18 O2 Sat by Pulse Oximetry 93 04/05/18 16:18 Oxygen Delivery Oxygen Delivery Room Air Medical Decision Making - MDM Narrative Medical decision making narrative: Patient with a subcapital left hip fracture. I spoke with Dr. Fields with orthopedics. Patient will be admitted to the hospitalist. - Medical Records Medical records reviewed: Yes I reviewed the patient's medical records. - Lab Data Lab results reviewed: Yes I reviewed the patient's lab results. Result diagrams: 04/05/18 15:35 04/05/18 15:30 Lab Results 04/05/18 04/05/18 04/05/18 Range/Units 15:30 15:35 15:35 WBC 5.3 (4.3-11.1) K/mcL RBC 3.70 L (3.82-4.97) M/mcL Hgb 12.0 (11.5-15.4) g/dL Hct 37.7 (35.3-44.9) % MCV 101.9 H (83.0-100.0) fL MCH 32.4 (28.0-33.3) pg MCHC 31.8 (31.6-35.5) g/dL RDW 12.3 (11.5-14.5) % Plt Count 148 (140-400) K/mcL MPV 9.7 (9.4-12.4) fL Immature Gran % 0.2 (0-4) % Seg Neutrophils % 70.4 % Lymphocytes % 15.3 % Monocytes % 8.9 % Eosinophils % 4.4 % Basophils % 0.8 % Neutrophils # 3.7 (1.6-8.9) K/mcL Lymphocytes # 0.8 (0.6-4.6) K/mcL Monocytes # 0.5 (0.0-1.3) K/mcL Eosinophils # 0.2 (0.0-0.6) K/mcL Basophils # 0.0 (0.0-0.2) K/mcL PT 11.7 (9.4-12.1) Seconds INR 1.1 APTT 34.8 (26.0-36.0) Seconds Sodium 141 (136-145) mEq/L Potassium 4.6 (3.5-5.1) mEq/L Chloride 107 (98-107) mEq/L Carbon Dioxide 27 (23-29) mEq/L BUN 26 H (8-23) mg/dL Creatinine 1.22 H (0.60-1.20) mg/dL Est GFR ( Amer) 50 L (> 60) Est GFR (Non-Af Amer) 41 L (> 60) BUN/Creatinine Ratio 21 (6-26) Glucose 207 H (70-105) mg/dL Calculated Osmolality 303 H (280-300) Calcium 9.4 (8.6-10.3) mg/dL - Radiology Data Radiology results reviewed: Yes I reviewed the patient's radiology results. - EKG Data EKG #1 EKG attestation: Yes I reviewed and interpreted this EKG. EKG results narrative: EKG shows a electronic paced rhythm. Rate of 87. VT interval 205. QRS 186. QTC 488.
[2018-04-05 17:22] LABS: Bilirubin,Urine Small (Negative); Blood,Urine Negative (Negative); Clarity,Urine Clear (Clear); Color,Urine Yellow (Yellow); Glucose,Urine (UA) Normal (Normal); Ketones,Urine Negative (Negative); Leukocyte Esterase,Urine Negative (Negative); Nitrite,Urine Negative (Negative); PH,Urine 5.5 pH Units (5.0-8.0); Protein,Urine Trace mg/dL (Neg-Trace); Specific Gravity,Urine 1.024 (1.010-1.025); Urobilinogen,Urine Normal (Normal)
[2018-04-05 17:23] LABS: Bacteria,Urine None Seen per hpf (None-Few); Hyaline Casts,Urine None Seen per lpf (None-Few); Squamous Epithelial Cell,Urine Many per lpf (None-Few); WBC,Urine 0-3 per hpf (0-3)
[2018-04-05] MEDS ORDERED: Ondansetron 4 MG/2 ML VIAL IVP ONE (17:31)
--- NOTE | 2018-04-05 19:04 | Anesthesia Evaluation PreOp ---
Date of Encounter: 04/05/18 Time of Encounter: 19:02 - Past History Planned Operation: Left Hip Hemiarthroplasty Cardiac History: [place] (2-3 years ago), HTN, Hyperlipidemia, Cardiac Stent (x 5-6 last one LISA to mid RCA 09/2016), Pacemaker/ICD (x 3 years), Other (Severe Aortic Stenosis) Pulmonary History: Denies Any Significant HX [employer] History: Other (Anxiety/Depression) Other Medical History: Hepatic (Hep C), Diabetes Type II, Thyroid (Hypo), GERD Anesthesia History: No Prior Anesthetic Complications, Past Anesthesia (c- section, cholecystectomy, R & L TKR, R. THR, hysterectomy,) : No Alcohol Use: none Drug use: none Medications and Allergies Aspirin [Lo-Dose Aspirin EC] 81 mg PO DAILY 10/02/16 [History] Atorvastatin [Lipitor] 40 mg PO HS 10/02/16 [History] Clopidogrel [Plavix] 75 mg PO DAILY 10/02/16 [History] Levothyroxine [Synthroid] 100 mcg PO HS 10/02/16 [History] Pantoprazole Sodium [Protonix] 40 mg PO DAILY 10/02/16 [History] Ropinirole HCl [Requip] 0.5 mg PO HS 10/02/16 [History] Ergocalciferol (VITAMIN D2) [Vitamin D2] 50,000 unit PO SA 10/04/16 [History] Gabapentin [Neurontin] 200 mg PO HS 10/04/16 [History] Furosemide [Lasix] 20 mg PO DAILY #30 tablet 10/05/16 [Rx] Acetaminophen/Diphenhydramine [Acetaminophen Pm Caplet] 2 tab PO HS PRN [History] Metoprolol XL (24 HR) Succ [Toprol Xl] 12.5 mg PO DAILY 09/02/17 [History] HYDROcodone/Acet 5/325 mg [[place] 5-325 mg] 1 tab PO Q8H PRN 04/05/18 [History] Magnesium Oxide [Magnesium] 400 mg PO BID 04/05/18 [History] 3 Allergy/AdvReac Type Severity Reaction Status Date / Time metformin Allergy See Verified 04/05/18 17:34 Comments Sulfa (Sulfonamide AdvReac Confusion Verified 04/05/18 17:34 Antibiotics) Tizanidine AdvReac Drowsy Verified 04/05/18 17:34 - Meds/Allergy Pre-op Review Medications Reviewed: Yes Allergies Reviewed: Yes Beta Blockers on Current Med List: No Anesthesia Results - Labs 04/05/18 15:35 04/05/18 15:30 Echocardiogram Name: Amanda Salcido Date of Study: 10/03/2016 Impressions: LVEF 35%. Normal LV chamber size and wall thickness. Segmental left ventricular systolic dysfunction as described below. Indeterminate diastolic function. Atypical septal motion consistent with paced rhythm. Normal right ventricular structure and function. Moderately dilated left atrium. Grossly, the aortic valve appears severely calcified with reduced excursion. . The number of leaflets cannot be determined . Low-flow, low-gradient severe aortic stenosis. Peak velocity 3.32 cm/s, Mean gradient 25 mmHg, JAVIER < 1 cm2. Mild aortic regurgitation. Moderately thickened mitral valve leaflets and subvalvular apparatus. Moderate mitral regurgitation, which was somewhat posteriorly directed. No evidence of pulmonary hypertension identified. Left Ventricular Wall Motion: Rest Echo Findings The apical inferior, mid inferior, basal inferior, apical septal, mid inferior septal and basal inferior septal perkins were hypokinetic. All other wall segments showed normal motion. Findings: Study Quality * Technically adequate exam. ECG Findings * Paced rhythm. Left Ventricle * LVEF 35%. * Normal LV chamber size and wall thickness. * Segmental left ventricular systolic dysfunction as described below. * Indeterminate diastolic function. * Atypical septal motion consistent with paced rhythm. Right Ventricle * Normal right ventricular structure and function. Left Atrium * Moderately dilated left atrium. Right Atrium * Normal right atrial size. Interatrial Septum * No evidence of PFO by color Doppler. Aortic Valve * Grossly, severely calcified aortic valve with reduced mobility. The number of leaflets cannot be determined. * Low-flow, low-gradient severe aortic stenosis. Peak velocity3.32 cm/s, Mean gradient 25 mmHg, JAVIER < 1 cm2. * Mild aortic regurgitation. Mitral Valve * Moderately thickened mitral valve leaflets and subvalvular apparatus. * Moderate mitral annular calcification. * Moderate mitral regurgitation, which was somewhat posteriorly directed. * No mitral stenosis. Tricuspid Valve * Normal tricuspid valve structure and function. * Trace tricuspid regurgitation. * No evidence of pulmonary hypertension. Pulmonic Valve * Pulmonic valve not well visualized. * No pulmonic regurgitation. Aorta * Normally sized aortic root. Pericardium * The pericardium appears normal. IVC * Normal IVC dimensions and inspiratory collapse. Pulmonary Artery * Normal visualized portions of the main pulmonary artery. Name: Amanda Salcido Date of Study: 10/04/2016 Procedures Performed: PTCA Single Major Vessel CORONARY ANGIOGRAPHY Indications: Non-Stemi Impressions: There is severe one vessel coronary artery disease. Patient had successful PTCA in the mid RCA for ISR in BMS Stent placed from a prior procedure in the Proximal LAD is patent. Recommendations: Optimal medical therapy of patient's disease. Aggressive risk factor modification. Procedure Access obtained in the right Femoral artery by percutaneous puncture Patient had successful PTCA in the mid RCA. Complications: None Contrast: Isovue 30ml Hemodynamics: Pressures Site Systolic/ A Wave Diastolic/ V Wave End Diastolic/ Mean HR AO 97 59 75 74 AO 47 25 35 75 AO 107 57 78 74 AO 102 52 73 74 AO 90 67 79 74 AO 107 57 78 73 Coronary Dominance: Lesion Findings/Interventions * Left Main Coronary Artery The LMCA is angiographically free of disease. * Left Anterior Descending There is a 40% stenosis in the proximal Mid LAD - instent restenosis * Circumflex The Circumflex is angiographically free of significant disease. The 1st Marginal is angiographically free of significant disease. * Right Coronary Artery There is a 95-99% in stent stenosis in the Mid RCA. The lesion has a SRINATH flow of 3 and has no thrombus present. An intervention was performed on the Mid RCA with a final stenosis of 0%. There were no lesion complications. The final SRINATH flow was 3. - Imaging EKG: report reviewed (ELECTRONIC VENTRICULAR PACEMAKER ABNORMAL RHYTHM ECG) Anesthesia Exam O2 Sat Height 1.57 m Weight 60.328 kg O2 Sat by Pulse Oximetry 96 O2 Sat by Pulse Oximetry 93 O2 Sat by Pulse Oximetry 96 Vital Signs Temp Pulse Resp BP Pulse Ox 97.4 F L 95 20 162/97 96 04/05/18 15:17 04/05/18 15:17 04/05/18 15:17 04/05/18 15:17 04/05/18 15:17 - HEENT Pupil (Motor): Pupils equal, EOMI Mallampati: II Teeth: Edentulous Oral Opening: Greater than 3 - [employer] LOC: Oriented [employer] Motor: Normal RUE, Normal LUE, Normal RLE, Normal LLE, Normal Face [employer] Sensory: Normal: RUE, LUE, RLE, LLE, Face - Cardiac Rhythm: Regular Murmur: None JVD: No Carotid Bruit: No - Pulmonary Breath Sounds: bilateral Clear Respiratory Effort: Symmetrical Anesthesia Assess/Plan ASA Score: 4 Modified Daysi Scale for Level of Consciousness: Cooperative, oriented, and tranquil Anesthetic Plan: General (Patient refuses spinal) Autologous Blood: Yes Monitoring Plan: Standard Monitors, A-Line Recovery Plan: PACU
[2018-04-05] MEDS ORDERED: Naloxone 0.4 MG/ML INJ IVP PRN (19:06)
[2018-04-05] MEDS ORDERED: *HR* HYDROcodone/Acet 5/325 mg TABLET PO PRN (19:12)
[2018-04-05] MEDS ORDERED: ACETAMINOPHEN PO PRN (19:12)
[2018-04-05] MEDS ORDERED: DIPHENHYDRAMINE PO PRN (19:12)
[2018-04-05] MEDS ORDERED: *HR* OxyCODONE Immed Rel 5 MG TABLET PO ONE (19:14)
[2018-04-05] MEDS ORDERED: 0.9 % Sodium Chloride 1,000 ML IVC SCH (19:15)
--- NOTE | 2018-04-05 19:26 | Internal Med History&Physical ---
Date of Encounter: 04/05/18 Time of Encounter: 07:30 Internal Medicine - H&P: HPI Chief complaint: Hip pain Admitted From: Home Plans for Post Hospital Care: Transfer Shelter Facility History of present illness: Ms. Salcido is a 87 year old female who presented to the emergency department with left leg pain and hip pain. It started when she woke up this morning when she was trying to get out of bed. Patient was having pain she went shopping with her family and but her pain worse. Patient denied any trauma. She denied any fall. She does have a history of osteoporosis. She came into the emergency department for worsening pain. Patient denied any fall no chest pain no dizziness no shortness of breath. In the emergency room she was found to have left hip fracture. Patient has a history of previous right hip replacement. She has a history of coronary artery disease and she is on Plavix and she has a pacemaker. Past Med Surg Social Fam HX - Past Medical History Medical history: arthritis, CHF, coronary artery disease, GERD, hyperlipidemia, hypertension, myocardial infarction, renal disease Additional medical history: osteoarthritis Psychiatric history: anxiety, depression - Past Surgical History Surgical History: , cholecystectomy, heart valve replacement, hip replacement, hysterectomy, knee replacement Additional surgical history: heart valve replacement - Social History Smoking Status: Never smoker Smokeless Tobacco Status: No Alcohol use: none Drug use: none - Family History Mother Living Status: Hx Family Cancer: Yes Father Hx Family Cardiac Disorders: Yes Internal Medicine - H&P: Meds Aspirin [Lo-Dose Aspirin EC] 81 mg PO DAILY 10/02/16 [History] Atorvastatin [Lipitor] 40 mg PO HS 10/02/16 [History] Clopidogrel [Plavix] 75 mg PO DAILY 10/02/16 [History] Levothyroxine [Synthroid] 100 mcg PO HS 10/02/16 [History] Pantoprazole Sodium [Protonix] 40 mg PO DAILY 10/02/16 [History] Ropinirole HCl [Requip] 0.5 mg PO HS 10/02/16 [History] Ergocalciferol (VITAMIN D2) [Vitamin D2] 50,000 unit PO SA 10/04/16 [History] Gabapentin [Neurontin] 200 mg PO HS 10/04/16 [History] Furosemide [Lasix] 20 mg PO DAILY #30 tablet 10/05/16 [Rx] Acetaminophen/Diphenhydramine [Acetaminophen Pm Caplet] 2 tab PO HS PRN [History] Metoprolol XL (24 HR) Succ [Toprol Xl] 12.5 mg PO DAILY 09/02/17 [History] HYDROcodone/Acet 5/325 mg [[place] 5-325 mg] 1 tab PO Q8H PRN 04/05/18 [History] Magnesium Oxide [Magnesium] 400 mg PO BID 04/05/18 [History] 3 Allergy/AdvReac Type Severity Reaction Status Date / Time metformin Allergy See Verified 04/05/18 17:34 Comments Sulfa (Sulfonamide AdvReac Confusion Verified 04/05/18 17:34 Antibiotics) Tizanidine AdvReac Drowsy Verified 04/05/18 17:34 All Systems PM: A 10-system review of systems was performed and is negative for pertinent findings except as documented above in the HPI. - Constitutional Vitals: Temp Pulse Resp BP Pulse Ox 98.0 F 85 18 162/82 96 04/05/18 18:12 04/05/18 18:12 04/05/18 18:12 04/05/18 18:12 04/05/18 18:12 - Head Head exam: Present: atraumatic, normocephalic - Eye Eye exam: Present: PERRL, conjuntiva pink, sclera anicteric Pupils: Present: PERRL - Neck Neck exam general surgery: Present: supple, trachea midline. Absent: lymphadenopathy - Respiratory Respiratory exam: Present: CTAB. Absent: accessory muscle use, rales, rhonchi, wheezes - Cardiovascular Cardiovascular exam: Present: RRR, +S1, +S2. Absent: diastolic murmur, gallop, rubs, systolic murmur - GI/Abdominal GI/Abdominal exam: Present: normal bowel sounds, soft, no peritoneal signs. Absent: distended, tenderness - Extremities Exam Additional comments: Limited range of motion left lower extremity - Neurological Exam Neurological exam: Present: CN II-XII intact, oriented X3, no focal deficits. Absent: pronater drift, facial droop, speech deficit Internal Med - H&P Results - Labs CBC & Chem 7: 04/05/18 15:35 04/05/18 15:30 Labs: Urine 04/05/18 Range/Units 17:13 Urine Color Yellow (Yellow) Urine Clarity Clear (Clear) Urine pH 5.5 (5.0-8.0) pH Units Ur Specific [place] 1.024 (1.010-1.025) Urine Protein Trace (Neg-Trace) mg/dL Urine Glucose (UA) Normal (Normal) mg/dL - Assessment and plan (1) Closed left hip fracture Current Visit: Yes Status: Acute Assessment and plan: Orthopedics already contacted Keep the patient nothing by mouth for possible surgery tomorrow Pain control Gentle IV hydration Patient has moderate risk for orthopedic surgery We will check EKG and troponin postop PT/OT postsurgery as per Orthopedics orders Qualifiers: Qualified Code(s): S72.002A - Fracture of unspecified part of neck of left femur, initial encounter for closed fracture (2) Acute kidney injury Current Visit: Yes Status: Acute (3) CKD (chronic kidney disease) stage 3, GFR 30-59 ml/min Current Visit: No Status: Chronic Assessment and plan: Patient BUN/Cr is around her baseline Monitor kidney function tests Avoid nephrotoxic agents (4) History of coronary artery disease Current Visit: Yes Status: Acute Assessment and plan: Stable. Continue current medications (5) On esomeprazole prophylaxis Current Visit: Yes Status: Acute (6) DVT prophylaxis Current Visit: Yes Status: Acute Assessment and plan: With Lovenox to be held before surgery. Post-op DVT prophylaxis as per orthopedics recommendation - Time Spent With Patient Total time spent is greater than 50% in coordination of care (as documented) at patient's floor/unit and/or counseling patient:
[2018-04-05] MEDS: Magnesium Oxide 400 MG TABLET PO SCH (19:57)
[2018-04-05] MEDS ORDERED: rOPINIRole 0.25 MG TABLET PO SCH (21:00)
[2018-04-05] MEDS ORDERED: Gabapentin 100 MG CAPSULE PO SCH (21:00)
[2018-04-05] MEDS: 0.9 % Sodium Chloride 1,000 ML IVC SCH (21:37)
[2018-04-05] MEDS ORDERED: Acetaminophen IV 500 MG/50 ML INFUS..BTL IVPB ONE (23:10)
[2018-04-05] MEDS: Pantoprazole 40 MG VIAL IVP SCH (23:37)
[2018-04-06 01:35] LABS: Basophils % 0.5 %; Eosinophils # 0.1 K/mcL (0.0-0.6); Eosinophils % 0.8 %; Hemoglobin 11.7 g/dL (11.5-15.4); Immature Granulocytes % 0.2 % (0-4); Lymphocytes # 0.9 K/mcL (0.6-4.6); Lymphocytes % 14.2 %; Mean Corpuscular HGB Conc 32.5 g/dL (31.6-35.5); Mean Corpuscular Hemoglobin 32.8 pg (28.0-33.3); Mean Corpuscular Volume 100.8 fL (83.0-100.0); Mean Platelet Volume 10.4 fL (9.4-12.4); Monocytes # 0.7 K/mcL (0.0-1.3); Monocytes % 11.4 %; Neutrophils # 4.7 K/mcL (1.6-8.9); Platelet Count 133 K/mcL (140-400); Red Blood Count 3.57 M/mcL (3.82-4.97); Red Cell Distribution Width 12.3 % (11.5-14.5); Segmented Neutrophils % 72.9 %
[2018-04-06 01:59] LABS: BUN/Creatinine Ratio 21 (6-26); Blood Urea Nitrogen 22 mg/dL (8-23); Calcium 9.2 mg/dL (8.6-10.3); Carbon Dioxide 25 mEq/L (23-29); Chloride 106 mEq/L (98-107); Glucose 152 mg/dL (70-105); Magnesium 1.6 mg/dL (1.6-2.6); Osmolality,Calculated 294 (280-300); Phosphorous 3.6 mg/dL (2.7-4.5); Potassium 4.7 mEq/L (3.5-5.1); Sodium 139 mEq/L (136-145); eGFR For African Americans > 60 (> 60); eGFR For Non-African Americans 50 (> 60)
[2018-04-06 02:22] LABS: Folate 22.2 ng/mL (3.0-16.0)
--- NOTE | 2018-04-06 04:55 | Event Note ---
Date of Encounter: 04/06/18 Time of Encounter: 04:53 Patient presented for hip fracture, pain initially treated with opioid medication, however during the night her nurse noticed a distended abdomen. A KUB x-ray was ordered that showed ileus. Opioid pain medications were held to prevent exacerbating the ileus. Toradol ordered as patient reported 10/10 pain despite administration of ofirmev.
[2018-04-06] MEDS: Ketorolac 15 MG/ML VIAL IVP PRN ×2 (05:01→13:25)
[2018-04-06] MEDS ORDERED: *HR* Enoxaparin 30 MG/0.3 ML SYRINGE SQ SCH (06:00)
[2018-04-06] MEDS ORDERED: *HR* FentaNYL (PF) 100 MCG/2 ML VIAL IVP ONE (06:20)
--- NOTE | 2018-04-06 06:46 | Orthopedic Consult Note ---
Date of Encounter: 04/06/18 Time of Encounter: 06:45 History of Present Illness HPI: Ms. Salcido is a 87 year old female Status post fall yesterday with injury to left hip. Patient complains of pain decreased motion. Physical exam alert and oriented 3 Left lower extremity shortened external rotated Decreased range of motion secondary to pain Neurovascular intact X-rays left displaced femoral neck fracture Plan left hip hemiarthroplasty We reviewed the risks and benefits as well as recovery. All questions were answered. The patient agreed to this treatment plan and appeared to understand the plan is reviewed. Past Med Surg Social Fam HX - Past Medical History Medical history: arthritis, CHF, coronary artery disease, GERD, hyperlipidemia, hypertension, myocardial infarction, renal disease Additional medical history: osteoarthritis Psychiatric history: anxiety, depression - Past Surgical History Surgical History: , cholecystectomy, heart valve replacement, hip replacement, hysterectomy, knee replacement Additional surgical history: heart valve replacement - Social History Smoking Status: Never smoker Smokeless Tobacco Status: No Alcohol use: none Drug use: none - Family History Mother Living Status: Hx Family Cancer: Yes Father Hx Family Cardiac Disorders: Yes Medications and Allergies Aspirin [Lo-Dose Aspirin EC] 81 mg PO DAILY 10/02/16 [History] Atorvastatin [Lipitor] 40 mg PO HS 10/02/16 [History] Clopidogrel [Plavix] 75 mg PO DAILY 10/02/16 [History] Levothyroxine [Synthroid] 100 mcg PO HS 10/02/16 [History] Pantoprazole Sodium [Protonix] 40 mg PO DAILY 10/02/16 [History] Ropinirole HCl [Requip] 0.5 mg PO HS 10/02/16 [History] Ergocalciferol (VITAMIN D2) [Vitamin D2] 50,000 unit PO SA 10/04/16 [History] Gabapentin [Neurontin] 200 mg PO HS 10/04/16 [History] Furosemide [Lasix] 20 mg PO DAILY #30 tablet 10/05/16 [Rx] Acetaminophen/Diphenhydramine [Acetaminophen Pm Caplet] 2 tab PO HS PRN [History] Metoprolol XL (24 HR) Succ [Toprol Xl] 12.5 mg PO DAILY 09/02/17 [History] HYDROcodone/Acet 5/325 mg [[place] 5-325 mg] 1 tab PO Q8H PRN 04/05/18 [History] Magnesium Oxide [Magnesium] 400 mg PO BID 04/05/18 [History] 3 Allergy/AdvReac Type Severity Reaction Status Date / Time metformin Allergy See Verified 04/05/18 17:34 Comments Sulfa (Sulfonamide AdvReac Confusion Verified 04/05/18 17:34 Antibiotics) Tizanidine AdvReac Drowsy Verified 04/05/18 17:34 All Systems Reviewed: The remainder of the systems were reviewed and are negative Physical Exam - Constitutional Vitals: Temp Pulse Resp BP Pulse Ox 97.8 F 84 18 138/86 93 04/06/18 06:39 04/06/18 06:39 04/06/18 06:39 04/06/18 06:39 04/06/18 06:39 Results - Labs Result Diagrams: 04/06/18 01:15 04/06/18 01:15 Labs: Abnormal lab results RBC 3.57 M/mcL (3.82-4.97) L 04/06/18 01:15 MCV 100.8 fL (83.0-100.0) H 04/06/18 01:15 Plt Count 133 K/mcL (140-400) L 04/06/18 01:15 Est GFR (Non-Af Amer) 50 (> 60) L 04/06/18 01:15 Glucose 152 mg/dL (70-105) H 04/06/18 01:15 Folate 22.2 ng/mL (3.0-16.0) H 04/06/18 01:15 Urine Bilirubin Small (Negative) H 04/05/18 17:13 Urine Microscopic RBC 3-5 per hpf (0-3) H 04/05/18 17:13 Ur Squamous Epith Cells Many per lpf (None-Few) H 04/05/18 17:13 H & H 04/06/18 Range/Units 01:15 Hgb 11.7 (11.5-15.4) g/dL Hct 36.0 (35.3-44.9) % All other labs normal. Consult Discharge Plan - Plan Referrals: Ramsey Chase MD [Primary Care Provider] -
--- NOTE | 2018-04-06 07:22 | Electrocardiograph Report ---
[address] [place], [place] [address] Test Date: 2018-04-05 Pat Name: Amanda Salcido Department: 103 Room: [facility] Gender: F Dosier Operator: EKP : [id number] Requested By: Gustavo Wilson Order Number: [id number] Reading MD: Adrian Craig Measurements Intervals Watson Rate: 87 P: 72 OR: 205 QRS: -62 QRSD: 186 T: 109 QT: 444 QTc: 488 Interpretive Statements ELECTRONIC VENTRICULAR PACEMAKER Electronically Signed On 04-06-2018 7:20:58 EDT by Adrian Craig
[2018-04-06] MEDS: Magnesium Oxide 400 MG TABLET PO SCH ×2 (08:51→21:30)
[2018-04-06] MEDS: Pantoprazole 40 MG VIAL IVP SCH (08:53)
[2018-04-06] MEDS ORDERED: Aspirin Enteric Coated 81 MG Tablet PO SCH (09:00)
[2018-04-06] MEDS ORDERED: Metoprolol XL (24 HR) Succ 25 MG TAB.ER.24H PO SCH (09:00)
[2018-04-06] MEDS: 0.9 % Sodium Chloride 1,000 ML IVC SCH (13:33)
[2018-04-06] MEDS ORDERED: Heparin 1,000 UNITS/500 mL 500 ML ONE (15:01)
[2018-04-06] MEDS ORDERED: Acetaminophen IV 1,000 MG/100 ML INFUS..BTL IVPB ONE ×2 (15:13→18:13)
[2018-04-06] MEDS ORDERED: Acetaminophen IV 1,000 MG/100 ML INFUS..BTL ONE (15:21)
[2018-04-06] MEDS ORDERED: Ethanol\\Acetic Acid\\Na Ace\\Ben 1,000 ML IRRIG.SOLN IR ONE (15:37)
--- NOTE | 2018-04-06 15:38 | Internal Med Progress Note ---
Date of Encounter: 04/06/18 Time of Encounter: 15:26 - Assessment and plan (1) Closed left hip fracture Current Visit: Yes Status: Acute Assessment and plan: left hip fracture, await for hemiarthroplasty today Qualifiers: Encounter type: initial encounter Qualified Code(s): S72.002A - Fracture of unspecified part of neck of left femur, initial encounter for closed fracture (2) Aortic stenosis, severe Current Visit: Yes Status: Chronic (3) Congestive heart failure Current Visit: Yes Status: Chronic Assessment and plan: chronic combined systolic and diastolic CHF, current compensated Qualifiers: Qualified Code(s): I50.42 - Chronic combined systolic (congestive) and diastolic (congestive) heart failure (4) CAD (coronary artery disease) Current Visit: Yes Status: Chronic Assessment and plan: s/p stent 09/2016, was on plavix at home, continue ASA, plavix statin Qualifiers: Coronary Disease-Associated Artery/Lesion type: unspecified vessel or lesion type [place] vs. transplanted heart: [place] heart Associated angina: without angina Qualified Code(s): I25.10 - Atherosclerotic heart disease of [place] coronary artery without angina pectoris (5) CKD (chronic kidney disease) stage 3, GFR 30-59 ml/min Current Visit: Yes Status: Chronic Assessment and plan: ARF on CKD III, Cr trending down - Time Spent With Patient Total time spent is greater than 50% in coordination of care (as documented) at patient's floor/unit and/or counseling patient: 25 - 35 minutes - Subjective Interval history: Ms. Salcido is a 87 year old female who presented to the emergency department with left leg pain and hip pain. It started when she woke up this morning when she was trying to get out of bed. Patient was having pain she went shopping with her family and but her pain worse. Patient denied any trauma. She denied any fall. She does have a history of osteoporosis. She came into the emergency department for worsening pain. In the emergency room she was found to have left hip fracture. Patient has a history of previous right hip replacement. She has a history of coronary artery disease and she is on Plavix and she has a pacemaker. Patient was admitted for left hip fracture. Ortho was consulted in ER, she is going to have left hip hemiarthroplasty. Patient c/o pain 10/10 when she moves, c/o back pain as well, she is alert and oriented to 3, she said abdominal distention improved. She denies CHest pain and SOB, she has hx of CAD, [place], CHF, Cr 1, no DM, RCRI score 2, risk of periop cardiac event is 2.4 to 3.6%. CHF with EF 35% severe - Constitutional Vitals: Temp Pulse Resp BP Pulse Ox 97.9 F 82 16 137/78 93 04/06/18 10:43 04/06/18 10:43 04/06/18 10:43 04/06/18 10:43 04/06/18 10:43 General appearance: Present: A&O X 3, pleasant, no acute distress Exam: CONSTITUTIONAL: patient appears as an age appropriate female in no acute distress. EYES Clear sclerae, bilateral pupils are equal, reactive to light. EMOI. RESPIRATORY: No accessory muscle use, bilateral clear to auscultation, no wheezing, no crackles/rales. CARDIOVASCULAR: Regular heart rate, normal S1 and S2, no murmurs GASTROINTESTINAL: bowel sounds present, soft, no tenderness. MUSCULOSKELETAL: Joints in normal range of motion, no clubbing, no edema, no cyanosis. Bilateral peripheral pulses 2+. NEUROLOGIC: CN II to XII are grossly intact, no focal neurological deficit. Internal Medicine: Result - Labs CBC & Chem 7: 04/06/18 01:15 04/06/18 01:15 Labs: Short CBC 04/06/18 Range/Units 01:15 WBC 6.5 (4.3-11.1) K/mcL Hgb 11.7 (11.5-15.4) g/dL Hct 36.0 (35.3-44.9) % Plt Count 133 L (140-400) K/mcL Neutrophils # 4.7 (1.6-8.9) K/mcL BMP 04/06/18 01:15 Sodium 139 Potassium 4.7 Chloride 106 Carbon Dioxide 25 BUN 22 Creatinine 1.04 Glucose 152 H Calcium 9.2 Urine 04/05/18 Range/Units 17:13 Urine Color Yellow (Yellow) Urine Clarity Clear (Clear) Urine pH 5.5 (5.0-8.0) pH Units Ur Specific [place] 1.024 (1.010-1.025) Urine Protein Trace (Neg-Trace) mg/dL Urine Glucose (UA) Normal (Normal) mg/dL - ABG Interpretation ABG results: PT/INR, D-dimer PT 11.7 Seconds (9.4-12.1) 04/05/18 15:35 - Impressions Impressions KUB X-Ray 04/05/18 21:34 IMPRESSION: Diffuse gaseous distention of loops of small and large bowel, most suspicious for ileus. No free air. Unchanged left femoral neck fracture. D/ / Prosper Figueroa / Prosper Figueroa Interpreting Provider: Prosper Figueroa Consult Discharge Plan - Plan Referrals: Ramsey Chase MD [Primary Care Provider] -
[2018-04-06] MEDS ORDERED: ROPIVACAINE HCL/PF 0.5% 30 ML VIAL ONE (15:49)
[2018-04-06] MEDS ORDERED: Lidocaine -MPF 2% 5 ML VIAL ONE (15:49)
--- NOTE | 2018-04-06 16:21 | Anesthesia Procedures ---
Date of Encounter: 04/06/18 Time of Encounter: 15:45 Procedures: Anesthesia - Arterial Line Consent obtained: written consent Time out performed: Yes Sedation: Fentanyl (mcg): 50 Local Anesthetic: Lidocaine 1% Size (Gauge): 20 Length (inches): 1 3/4 Technique Used: sterile prep, direct puncture technique Post-Procedure: line taped into place Patient tolerated procedure: no complications Complications: none Site: Radial R
--- NOTE | 2018-04-06 16:24 | Anesthesia Procedures ---
Date of Encounter: 04/06/18 Time of Encounter: 15:45 Procedures: Anesthesia - Nerve Block Procedure Date: 04/06/18 Time: 16:00 Pre-op Diagnosis: Fracture Left Hip Surgical Procedure: Left Hip Bill Checklist: Correct Patient Identifier Correct side: Left Blood Thinner: Yes Monitor Applied: EKG, BP, Pulse Oximetry Supplemental Oxygen via Nasal Cannula (L/min): 2 Sedation: Fentanyl (mcg): 50 Indication: Post Op Analgesia Pre-op Neuro Deficits: No Block Type: Other (Fascia [place]) Catheter placed: No Depth at skin (cm): 2 Sterile Technique: Yes Ultrasound used: Yes Anatomy identified: Yes Visual spread of Local: Yes Neuro Stimulation: No Blood on Needle Aspiration: No Smooth Injection of Local: Yes Pain with Injection of Local: No Prep: Chlorhexadine Needle: 22 x 50 mm Stimuplex Local: Ropivacaine (0.25%), Other (Lidocaine 2%) Volume (cc): 50 Number of Attempts: 1 Complications: None/effective block
[2018-04-06] MEDS ORDERED: *HR* FentaNYL (PF) 100 MCG/2 ML VIAL ONE (16:31)
[2018-04-06] MEDS ORDERED: *HR* Propofol 200 MG/20 ML VIAL IVP ONE (16:31)
[2018-04-06] MEDS ORDERED: Dexamethasone 4 MG/ML VIAL ONE (16:31)
[2018-04-06] MEDS ORDERED: Lidocaine -MPF 4% 5 ML AMPUL ONE (16:31)
[2018-04-06] MEDS ORDERED: Lidocaine -MPF 2% 2 ML VIAL ONE (16:31)
[2018-04-06] MEDS ORDERED: *HR* Succinylcholine 200 MG/10 ML VIAL IVP ONE (16:31)
[2018-04-06] MEDS ORDERED: *HR* Etomidate 40 MG/20 ML VIAL IVP ONE (16:31)
[2018-04-06] MEDS ORDERED: *HR* PHENYLEPHRINE 1,000 MCG/10 ML SYRINGE IVP ONE (16:31)
[2018-04-06] MEDS ORDERED: Ondansetron 4 MG/2 ML VIAL ONE (16:31)
[2018-04-06] MEDS ORDERED: *HR* HYDROmorphone (PF) 1 MG/ML SYRINGE IVP PRN (16:40)
[2018-04-06] MEDS ORDERED: *HR* Promethazine 25 MG/ML VIAL IVP PRN (16:40)
--- NOTE | 2018-04-06 17:12 | Orthopedic Operative Note ---
Date of procedure: 04/06/18 Pre-op diagnosis: right hip fracture Post-op diagnosis: same Procedure: Procedure: left hip hemiarthroplasty Estimated blood loss: 200 cc Hardware: Metal replacement 45 mm unipolar head and -6 taper 9 biomet stem Operative procedure: The patient was brought to the operating room and placed on the operating room table. After general anesthesia was administered the patient was placed in the lateral decubitus position with the operative leg up. All pressure points were padded appropriately and the head was stabilized in the neutral position. The operative extremity was prepped and draped in the sterile surgical fashion patient received IV antibiotic prior to skin incision. A standard posterior approach is made to the operative hip, the incision was made through the skin and subcutaneous tissue hemostasis was obtained with Bovie cautery. Using careful sharp dissection the fascia was identified and incised exposing the external rotators. The external rotators were released off the greater trochanter and tagged with #2 FiberWire suture. The capsule was T'd open the femoral head was removed. The femoral neck cut was made at the appropriate level. The hip was brought into internal rotation and prepared with the box hinge and lock attacher followed by the canal finder followed by broaching process in 20 degrees anteversion. It was broached up to the appropriate size 9. The femoral implant was impacted in place in 20 degrees of anteversion. Trial reduction found the hip to be stable with the appropriate -6 45 unipolar head . The trials were removed and the real implants were impacted in place. The hip was reduced, the hip had full extension and full flexion of the knee was in full extension.the patient had apparent equal leg length. The hip had excellent stability with forward flexion to 90 degrees adduction of 30 degrees and internal rotation of 60 degrees. The hip had no shuck. The hip was irrigated out with 2 L of pulse irrigation. Fascia was closed with a running #2 PDS suture. The deep tissue was irrigated and closed deep with #1 PDS suture superficially with 0 PDS suture and skin was closed with Dermabond. The patient was placed in a sterile dressing and abduction pillow. The patient was extubated and transferred to the recovery room in stable condition. Anesthesia: GETA Surgeon: Farrukh Fields Was there an case assistant present: No Estimated blood loss (cc): 200 Condition: stable Disposition: PACU
[2018-04-06 17:51] LABS: Hematocrit 32.9 % (35.3-44.9); Hemoglobin 10.7 g/dL (11.5-15.4)
--- NOTE | 2018-04-06 18:09 | Anesthesia Evaluation Post Op ---
Date of Encounter: 04/06/18 Time of Encounter: 18:00 - Vital Signs Vital Signs: Vital Signs/O2 Sat/Glucose, Most Current Temp Pulse Resp BP Pulse Ox 04/06/18 17:37 95 16 118/82 93 04/06/18 17:27 83 16 131/74 94 04/06/18 17:17 99.2 F 73 17 111/77 99 04/06/18 16:00 88 134/76 98 - Lungs Lungs: Clear Ascult./Percussion - Airway Airway: Non-obstructed - Cardiovascular Regular Rate - Mental Status Mental Status: Alert & Oriented, Answers Appropriately - Pain Pain Scale: 0 - Nausea Vomiting Nausea Vomiting: Not Present - Hydration Hydration: Ice chips - Discharge PostOp Status: Transfer Patient to floor
[2018-04-06] MEDS ORDERED: DIPHENHYDRAMINE PO PRN (18:13)
[2018-04-06] MEDS ORDERED: Sennosides 8.6 MG TABLET PO PRN (18:13)
[2018-04-06] MEDS ORDERED: MOM Conc 10 ML UD.LIQ PO PRN (18:13)
[2018-04-06] MEDS ORDERED: ACETAMINOPHEN PO PRN (18:13)
[2018-04-06] MEDS ORDERED: 0.9 % Sodium Chloride 1,000 ML IVC SCH ×2 (18:13)
[2018-04-06] MEDS ORDERED: Naloxone 0.4 MG/ML INJ IVP PRN (18:13)
[2018-04-06] MEDS ORDERED: Ketorolac 15 MG/ML VIAL IVP PRN (18:13)
[2018-04-06] MEDS: Temazepam 15 MG CAPSULE PO PRN (21:29)
[2018-04-06] MEDS: Gabapentin 100 MG CAPSULE PO SCH (21:29)
[2018-04-06] MEDS: rOPINIRole 0.25 MG TABLET PO SCH (21:29)
[2018-04-06] MEDS: Ascorbic Acid 500 MG TABLET PO SCH (21:30)
[2018-04-07 02:41] LABS: Hematocrit 30.4 % (35.3-44.9); Hemoglobin 9.8 g/dL (11.5-15.4)
[2018-04-07 03:21] LABS: Calcium 8.2 mg/dL (8.6-10.3); Potassium 5.9 mEq/L (3.5-5.1)
[2018-04-07] MEDS: Pantoprazole 40 MG VIAL IVP SCH (08:51)
[2018-04-07] MEDS: Metoprolol XL (24 HR) Succ 25 MG TAB.ER.24H PO SCH (08:52)
[2018-04-07] MEDS: Multivit/Ca/Min/Fe/FA 1 TAB TABLET PO SCH (08:52)
[2018-04-07] MEDS: Aspirin 81 MG TAB.CHEW PO SCH (08:52)
[2018-04-07] MEDS: Magnesium Oxide 400 MG TABLET PO SCH ×2 (08:53→21:19)
[2018-04-07] MEDS: Ascorbic Acid 500 MG TABLET PO SCH ×2 (08:53→17:12)
[2018-04-07] MEDS ORDERED: Aspirin Enteric Coated 81 MG Tablet PO SCH (09:00)
[2018-04-07] MEDS: *HR* HYDROcodone/Acet 5/325 mg TABLET PO PRN ×2 (12:30→21:29)
--- NOTE | 2018-04-07 14:45 | Internal Med Progress Note ---
Date of Encounter: 04/07/18 Time of Encounter: 14:42 - Assessment and plan (1) Closed left hip fracture Current Visit: Yes Status: Acute Assessment and plan: left hip fracture, s/p hemiarthroplasty on PT OT, francis need SNF Qualifiers: Encounter type: initial encounter Qualified Code(s): S72.002A - Fracture of unspecified part of neck of left femur, initial encounter for closed fracture (2) Aortic stenosis, severe Current Visit: Yes Status: Chronic Assessment and plan: close monitor volume status (3) Congestive heart failure Current Visit: Yes Status: Chronic Assessment and plan: d/c IVF, Qualifiers: Qualified Code(s): I50.42 - Chronic combined systolic (congestive) and diastolic (congestive) heart failure (4) CAD (coronary artery disease) Current Visit: Yes Status: Chronic Assessment and plan: continue ASA, plavix, statin Qualifiers: Coronary Disease-Associated Artery/Lesion type: unspecified vessel or lesion type [place] vs. transplanted heart: [place] heart Associated angina: without angina Qualified Code(s): I25.10 - Atherosclerotic heart disease of [place] coronary artery without angina pectoris (5) CKD (chronic kidney disease) stage 3, GFR 30-59 ml/min Current Visit: Yes Status: Chronic Assessment and plan: stable (6) Hyperkalemia Current Visit: Yes Status: Acute Assessment and plan: will follow up am (7) Anemia due to acute blood loss Current Visit: Yes Status: Acute Assessment and plan: expected post-op blood loss - Time Spent With Patient Total time spent is greater than 50% in coordination of care (as documented) at patient's floor/unit and/or counseling patient: 25 - 35 minutes - Subjective Interval history: Ms. Salcido is a 87 year old female who presented to the emergency department with left leg pain and hip pain. It started when she woke up this morning when she was trying to get out of bed. Patient was having pain she went shopping with her family and but her pain worse. Patient denied any trauma. She denied any fall. She does have a history of osteoporosis. She came into the emergency department for worsening pain. In the emergency room she was found to have left hip fracture. Patient has a history of previous right hip replacement. She has a history of coronary artery disease and she is on Plavix and she has a pacemaker. Patient was admitted for left hip fracture. Ortho was consulted in ER, she is going to have left hip hemiarthroplasty. Patient c/o pain 10/10 when she moves, c/o back pain as well, she is alert and oriented to 3, she said abdominal distention improved. She denies CHest pain and SOB, she has hx of CAD, [place], CHF, Cr 1, no DM, RCRI score 2, risk of periop cardiac event is 2.4 to 3.6%. CHF with EF 35% severe patient is doing well, she said hip pain is better, c/o back pain from lying in the bed. she is on RA, denies chest pain and SOB. she tolerated diet - Constitutional Vitals: Temp Pulse Resp BP Pulse Ox 97.9 F 81 16 114/81 95 04/07/18 10:00 04/07/18 10:00 04/07/18 10:00 04/07/18 10:00 04/07/18 10:00 General appearance: Present: A&O X 3, pleasant, no acute distress Exam: CONSTITUTIONAL: patient appears as an age appropriate female in no acute distress. EYES Clear sclerae, bilateral pupils are equal, reactive to light. EMOI. RESPIRATORY: No accessory muscle use, bilateral clear to auscultation, no wheezing, no crackles/rales. CARDIOVASCULAR: Regular heart rate, normal S1 and S2, no murmurs GASTROINTESTINAL: bowel sounds present, soft, no tenderness. MUSCULOSKELETAL: Joints in normal range of motion, no clubbing, no edema, no cyanosis. Bilateral peripheral pulses 2+. NEUROLOGIC: CN II to XII are grossly intact, no focal neurological deficit. Internal Medicine: Result - Labs CBC & Chem 7: 04/07/18 01:23 04/07/18 01:23 Labs: Short CBC 04/06/18 04/07/18 Range/Units 17:32 01:23 Hgb 10.7 L 9.8 L (11.5-15.4) g/dL Hct 32.9 L 30.4 L (35.3-44.9) % BMP 04/07/18 01:23 Sodium 138 Potassium 5.9 H Chloride 111 H Carbon Dioxide 20 L BUN 27 H Creatinine 1.14 Glucose 154 H Calcium 8.2 L - ABG Interpretation ABG results: PT/INR, D-dimer PT 11.7 Seconds (9.4-12.1) 04/05/18 15:35 - Impressions Impressions Hip X-Ray 04/06/18 16:16 IMPRESSION: Postoperative left hip hemiarthroplasty. D/ / 04/06/2018 17:52:28 Bharat Kaplan MD / osbaldo Interpreting Provider: Bharat Kaplan MD - VTE Documentation of Mechanical Device: Venous foot pump, device Consult Discharge Plan - Plan Referrals: Ramsey Chase MD [Primary Care Provider] -
[2018-04-07] MEDS: rOPINIRole 0.25 MG TABLET PO SCH (21:19)
[2018-04-07] MEDS: Temazepam 15 MG CAPSULE PO PRN (21:19)
[2018-04-07] MEDS: Gabapentin 100 MG CAPSULE PO SCH (21:19)
[2018-04-08 05:10] LABS: Hematocrit 27.3 % (35.3-44.9); Hemoglobin 8.7 g/dL (11.5-15.4)
[2018-04-08 05:35] LABS: Calcium 8.1 mg/dL (8.6-10.3); Potassium 4.8 mEq/L (3.5-5.1)
[2018-04-08] MEDS: *HR* HYDROcodone/Acet 5/325 mg TABLET PO PRN (06:04)
[2018-04-08] MEDS: Magnesium Oxide 400 MG TABLET PO SCH ×2 (07:40→20:01)
[2018-04-08] MEDS: Aspirin 81 MG TAB.CHEW PO SCH (07:40)
[2018-04-08] MEDS: Multivit/Ca/Min/Fe/FA 1 TAB TABLET PO SCH (07:41)
[2018-04-08] MEDS: Ascorbic Acid 500 MG TABLET PO SCH ×2 (07:41→17:31)
[2018-04-08] MEDS: Metoprolol XL (24 HR) Succ 25 MG TAB.ER.24H PO SCH (07:41)
[2018-04-08] MEDS: Pantoprazole 40 MG VIAL IVP SCH (07:42)
--- NOTE | 2018-04-08 15:35 | Internal Med Progress Note ---
Date of Encounter: 04/08/18 Time of Encounter: 15:32 - Assessment and plan (1) Closed left hip fracture Current Visit: Yes Status: Acute Assessment and plan: left hip fracture, s/p hemiarthroplasty on 04/06 on PT OT, SNF Qualifiers: Encounter type: initial encounter Qualified Code(s): S72.002A - Fracture of unspecified part of neck of left femur, initial encounter for closed fracture (2) Aortic stenosis, severe Current Visit: Yes Status: Chronic (3) Congestive heart failure Current Visit: Yes Status: Chronic Assessment and plan: EF 35%, well compensated Qualifiers: Qualified Code(s): I50.42 - Chronic combined systolic (congestive) and diastolic (congestive) heart failure (4) CAD (coronary artery disease) Current Visit: Yes Status: Chronic Qualifiers: Coronary Disease-Associated Artery/Lesion type: unspecified vessel or lesion type [place] vs. transplanted heart: [place] heart Associated angina: without angina Qualified Code(s): I25.10 - Atherosclerotic heart disease of [place] coronary artery without angina pectoris (5) CKD (chronic kidney disease) stage 3, GFR 30-59 ml/min Current Visit: Yes Status: Chronic (6) Hyperkalemia Current Visit: Yes Status: Acute (7) Anemia due to acute blood loss Current Visit: Yes Status: Acute - Time Spent With Patient Total time spent is greater than 50% in coordination of care (as documented) at patient's floor/unit and/or counseling patient: 25 - 35 minutes - Subjective Interval history: Ms. Salcido is a 87 year old female who presented to the emergency department with left leg pain and hip pain. It started when she woke up this morning when she was trying to get out of bed. Patient was having pain she went shopping with her family and but her pain worse. Patient denied any trauma. She denied any fall. She does have a history of osteoporosis. She came into the emergency department for worsening pain. In the emergency room she was found to have left hip fracture. Patient has a history of previous right hip replacement. She has a history of coronary artery disease and she is on Plavix and she has a pacemaker. Patient was admitted for left hip fracture. Ortho was consulted in ER, she is going to have left hip hemiarthroplasty. Patient c/o pain 10/10 when she moves, c/o back pain as well, she is alert and oriented to 3, she said abdominal distention improved. She denies CHest pain and SOB, she has hx of CAD, [place], CHF, Cr 1, no DM, RCRI score 2, risk of periop cardiac event is 2.4 to 3.6%. CHF with EF 35% severe patient is doing well, she said hip pain is better, tolerated PT, she agrees to go to SNF. she is on RA, denies chest pain and SOB. she tolerated diet discharge to SNF when ortho is ok - Constitutional Vitals: Temp Pulse Resp BP Pulse Ox 97.7 F 83 18 131/65 98 04/08/18 11:45 04/08/18 11:45 04/08/18 11:45 04/08/18 11:45 04/08/18 11:45 General appearance: Present: A&O X 3, pleasant, no acute distress Exam: CONSTITUTIONAL: patient appears as an age appropriate female in no acute distress. EYES Clear sclerae, bilateral pupils are equal, reactive to light. EMOI. RESPIRATORY: No accessory muscle use, bilateral clear to auscultation, no wheezing, no crackles/rales. CARDIOVASCULAR: Regular heart rate, normal S1 and S2, no murmurs GASTROINTESTINAL: bowel sounds present, soft, no tenderness. MUSCULOSKELETAL: Joints in normal range of motion, no clubbing, no edema, no cyanosis. Bilateral peripheral pulses 2+. NEUROLOGIC: CN II to XII are grossly intact, no focal neurological deficit. Internal Medicine: Result - Labs CBC & Chem 7: 04/08/18 04:32 04/08/18 04:32 Labs: Short CBC 04/08/18 Range/Units 04:32 Hgb 8.7 L (11.5-15.4) g/dL Hct 27.3 L (35.3-44.9) % BMP 04/08/18 04:32 Sodium 137 Potassium 4.8 Chloride 111 H Carbon Dioxide 21 L BUN 26 H Creatinine 1.08 Glucose 125 H Calcium 8.1 L - ABG Interpretation ABG results: PT/INR, D-dimer PT 11.7 Seconds (9.4-12.1) 04/05/18 15:35 - VTE Documentation of Mechanical Device: Venous foot pump, device Consult Discharge Plan - Plan Referrals: Ramsey Chase MD [Primary Care Provider] -
--- NOTE | 2018-04-08 16:45 | Orthopedics Progress Note ---
Date of Encounter: 04/07/18 Time of Encounter: 08:30 Subjective Principal diagnosis: s/p left hip hemiarthroplasty Interval history: The patient is without complaints. Afebrile vital signs are stable. Incision is clean dry and intact. Neurovascularly intact with regard to bilateral lower extremities. Fires all upper and lower extremity motor groups. Assessment : stable. Plan mobilize ,continue analgesics, discharge planning. Objective Vital signs: Vital Signs Temp Pulse Resp BP Pulse Ox 04/08/18 16:07 98.0 F 69 18 128/74 99 04/08/18 11:45 97.7 F 83 18 131/65 98 04/08/18 08:11 93 04/08/18 07:53 97.6 F 89 16 123/70 92 04/08/18 03:19 98.7 F 89 14 105/52 93 04/07/18 23:08 98.6 F 69 16 109/63 96 04/07/18 18:38 99.0 F 90 16 106/62 94 Intake and Output 04/08/18 04/08/18 04/08/18 07:59 15:59 23:59 Intake Total 0 / 0 540 / 540 Output Total 0 / 0 Balance 0 / 0 540 / 540 Intake: Oral 0 / 0 540 / 540 Output: Urine 0 / 0 Other: Meal Lunch Percent of Meal Consumed 75% Weight 65.36 kg Patient Weight 04/08/18 23:59 Weight 65.36 kg - Labs CBC & BMP: 04/08/18 04:32 04/08/18 04:32 Labs: Abnormal lab results RBC 3.57 M/mcL (3.82-4.97) L 04/06/18 01:15 Hgb 8.7 g/dL (11.5-15.4) L 04/08/18 04:32 Hct 27.3 % (35.3-44.9) L 04/08/18 04:32 MCV 100.8 fL (83.0-100.0) H 04/06/18 01:15 Plt Count 133 K/mcL (140-400) L 04/06/18 01:15 Chloride 111 mEq/L (98-107) H 04/08/18 04:32 Carbon Dioxide 21 mEq/L (23-29) L 04/08/18 04:32 BUN 26 mg/dL (8-23) H 04/08/18 04:32 Est GFR ( Amer) 58 (> 60) L 04/08/18 04:32 Est GFR (Non-Af Amer) 48 (> 60) L 04/08/18 04:32 Glucose 125 mg/dL (70-105) H 04/08/18 04:32 Calcium 8.1 mg/dL (8.6-10.3) L 04/08/18 04:32 Folate 22.2 ng/mL (3.0-16.0) H 04/06/18 01:15 Urine Bilirubin Small (Negative) H 04/05/18 17:13 Urine Microscopic RBC 3-5 per hpf (0-3) H 04/05/18 17:13 Ur Squamous Epith Cells Many per lpf (None-Few) H 04/05/18 17:13 - VTE Documentation of Mechanical Device: Venous foot pump, device Consult Discharge Plan - Plan Referrals: Ramsey Chase MD [Primary Care Provider] -
[2018-04-08] MEDS: rOPINIRole 0.25 MG TABLET PO SCH (20:00)
[2018-04-08] MEDS: Gabapentin 100 MG CAPSULE PO SCH (20:01)
[2018-04-09] MEDS: *HR* HYDROcodone/Acet 5/325 mg TABLET PO PRN ×2 (00:32→09:47)
[2018-04-09 05:02] LABS: Basophils % 0.4 %; Eosinophils # 0.2 K/mcL (0.0-0.6); Eosinophils % 2.7 %; Hematocrit 26.7 % (35.3-44.9); Hemoglobin 8.4 g/dL (11.5-15.4); Immature Granulocytes % 0.3 % (0-4); Lymphocytes # 1.3 K/mcL (0.6-4.6); Lymphocytes % 17.3 %; Mean Corpuscular HGB Conc 31.5 g/dL (31.6-35.5); Mean Corpuscular Hemoglobin 31.9 pg (28.0-33.3); Mean Corpuscular Volume 101.5 fL (83.0-100.0); Mean Platelet Volume 10.7 fL (9.4-12.4); Monocytes # 0.8 K/mcL (0.0-1.3); Monocytes % 11.1 %; Neutrophils # 5.1 K/mcL (1.6-8.9); Platelet Count 148 K/mcL (140-400); Red Blood Count 2.63 M/mcL (3.82-4.97); Segmented Neutrophils % 68.2 %
[2018-04-09 05:17] LABS: BUN/Creatinine Ratio 26 (6-26); Blood Urea Nitrogen 26 mg/dL (8-23); Calcium 8.4 mg/dL (8.6-10.3); Carbon Dioxide 24 mEq/L (23-29); Chloride 109 mEq/L (98-107); Glucose 120 mg/dL (70-105); Osmolality,Calculated 290 (280-300); Potassium 5.1 mEq/L (3.5-5.1); Sodium 137 mEq/L (136-145); eGFR For African Americans > 60 (> 60); eGFR For Non-African Americans 52 (> 60)
--- NOTE | 2018-04-09 06:41 | Orthopedics Progress Note ---
Date of Encounter: 04/09/18 Time of Encounter: 06:40 Subjective Principal diagnosis: s/p left hip hemiarthroplasty Interval history: Patient was seen this morning doing well without complaints. Afebrile vital signs stable. Operative extremity: Neurovascularly intact Dressing clean dry and intact Calves nontender Assessment and plan: Continue with postoperative care Ortho stable for discharge Objective Vital signs: Vital Signs Temp Pulse Resp BP Pulse Ox 04/09/18 00:34 98.9 F 96 18 148/76 96 04/08/18 19:07 98.3 F 90 16 133/71 97 04/08/18 16:07 98.0 F 69 18 128/74 99 04/08/18 11:45 97.7 F 83 18 131/65 98 04/08/18 08:11 93 04/08/18 07:53 97.6 F 89 16 123/70 92 Intake and Output 04/08/18 04/08/18 04/09/18 15:59 23:59 07:59 Intake Total 540 / 540 Balance 540 / 540 Intake: Oral 540 / 540 Other: Meal Lunch Dinner Percent of Meal Consumed 75% 50% # Voids 1 1 - Labs CBC & BMP: 04/09/18 00:38 04/09/18 00:38 Labs: Abnormal lab results RBC 2.63 M/mcL (3.82-4.97) L 04/09/18 00:38 Hgb 8.4 g/dL (11.5-15.4) L 04/09/18 00:38 Hct 26.7 % (35.3-44.9) L 04/09/18 00:38 MCV 101.5 fL (83.0-100.0) H 04/09/18 00:38 MCHC 31.5 g/dL (31.6-35.5) L 04/09/18 00:38 Chloride 109 mEq/L (98-107) H 04/09/18 00:38 BUN 26 mg/dL (8-23) H 04/09/18 00:38 Est GFR (Non-Af Amer) 52 (> 60) L 04/09/18 00:38 Glucose 120 mg/dL (70-105) H 04/09/18 00:38 Calcium 8.4 mg/dL (8.6-10.3) L 04/09/18 00:38 Folate 22.2 ng/mL (3.0-16.0) H 04/06/18 01:15 Urine Bilirubin Small (Negative) H 04/05/18 17:13 Urine Microscopic RBC 3-5 per hpf (0-3) H 04/05/18 17:13 Ur Squamous Epith Cells Many per lpf (None-Few) H 04/05/18 17:13 - VTE Documentation of Mechanical Device: Venous foot pump, device Consult Discharge Plan - Plan Referrals: Ramsey Chase MD [Primary Care Provider] -
[2018-04-09] MEDS: Magnesium Oxide 400 MG TABLET PO SCH (09:44)
[2018-04-09] MEDS: Pantoprazole 40 MG VIAL IVP SCH (09:44)
[2018-04-09] MEDS: Aspirin 81 MG TAB.CHEW PO SCH (09:44)
[2018-04-09] MEDS: Metoprolol XL (24 HR) Succ 25 MG TAB.ER.24H PO SCH (09:44)
[2018-04-09] MEDS: Ascorbic Acid 500 MG TABLET PO SCH (09:44)
[2018-04-09] MEDS: Multivit/Ca/Min/Fe/FA 1 TAB TABLET PO SCH (09:45)
--- NOTE | 2018-04-09 10:11 | Internal Med Progress Note ---
Date of Encounter: 04/09/18 Time of Encounter: 10:00 - Assessment and plan (1) Closed left hip fracture Current Visit: Yes Status: Acute Assessment and plan: left hip fracture, s/p hemiarthroplasty on 04/06 on PT OT, SNF Qualifiers: Encounter type: initial encounter Qualified Code(s): S72.002A - Fracture of unspecified part of neck of left femur, initial encounter for closed fracture (2) Anemia due to acute blood loss Current Visit: Yes Status: Acute Assessment and plan: Stable (3) DVT prophylaxis Current Visit: Yes Status: Acute Assessment and plan: scd - Time Spent With Patient Total time spent is greater than 50% in coordination of care (as documented) at patient's floor/unit and/or counseling patient: - Subjective Interval history: No acute events overnight - Constitutional Vitals: Temp Pulse Resp BP Pulse Ox 98.0 F 84 16 122/71 95 04/09/18 06:41 04/09/18 06:41 04/09/18 06:41 04/09/18 06:41 04/09/18 06:41 General appearance: Present: A&O X 3, pleasant, no acute distress - Head Head exam: Present: atraumatic, normocephalic - Eye Eye exam: Present: PERRL, conjuntiva pink, sclera anicteric Pupils: Present: PERRL - Neck Neck exam general surgery: Present: supple, trachea midline. Absent: lymphadenopathy - Respiratory Respiratory exam: Present: CTAB. Absent: accessory muscle use, rales, rhonchi, wheezes - Cardiovascular Cardiovascular exam: Present: RRR, +S1, +S2. Absent: diastolic murmur, gallop, rubs, systolic murmur - GI/Abdominal GI/Abdominal exam: Present: normal bowel sounds, soft, no peritoneal signs. Absent: distended, tenderness - Extremities Exam Extremities exam: Present: warm, radial pulses palpable and symmetrical. Absent : calf tenderness, cyanotic, pedal edema - Neurological Exam Neurological exam: Present: CN II-XII intact, oriented X3, no focal deficits. Absent: pronater drift, facial droop, speech deficit - Skin Skin exam: Present: dry, intact Internal Medicine: Result - Labs CBC & Chem 7: 04/09/18 00:38 04/09/18 00:38 Labs: Short CBC 04/09/18 Range/Units 00:38 WBC 7.5 (4.3-11.1) K/mcL Hgb 8.4 L (11.5-15.4) g/dL Hct 26.7 L (35.3-44.9) % Plt Count 148 (140-400) K/mcL Neutrophils # 5.1 (1.6-8.9) K/mcL BMP 04/09/18 00:38 Sodium 137 Potassium 5.1 Chloride 109 H Carbon Dioxide 24 BUN 26 H Creatinine 1.00 Glucose 120 H Calcium 8.4 L - ABG Interpretation ABG results: PT/INR, D-dimer PT 11.7 Seconds (9.4-12.1) 04/05/18 15:35 - VTE Documentation of Mechanical Device: Venous foot pump, device Consult Discharge Plan - Plan Additional Instructions: Discharge Instructions: Total Hip Replacement Please call [facility] ([phone]), your Primary Care Physician, or report to the Emergency Room if you have any of the following symptoms: Nausea, vomiting, fever greater that 101.5, swelling, chest pain, shortness of breath, increased pain/redness/drainage/odor for your incision site, numbness/ tingling, or any other concerning symptoms. ACTIVITY:Weight-bearing as tolerated for 8 weeks with hip dislocation precautions that physical therapy taught you. You may progress as tolerated under the guidance of your physical therapist. You do not need to sleep with a pillow between your legs. You can also seep on the operative side or on your stomach. MEDICATIONS: Upon discharge resume your home medications. Take all the medications as prescribed. Take a stool softener if taking narcotic pain medications. Stool softeners are only effective if you drink enough fluids. Drink 6-8 glass of water or fluids a day, unless this is not allowed for another health problem. Despite using stool softeners, if you haven't had a bowel movement in 3 days, please switch to a gentle laxative. Gentle laxatives are sold over the counter. You should have a bowel movement within 24 hours, if not call the office. You will be discharged from the hospital with a prescription for pain medication. You are encouraged to decrease the use of narcotic pain medication as tolerated. Should you require a refill, please call the office. [facility] prescribes narcotic pain medication for only 4-6 weeks after surgery. If you require pain medication beyond this time period, you may be referred to your Primary Care Physician or to the Pain Clinic for further evaluation. Plan ahead for refills on pain medication as many narcotics either need to be picked up at the office or mailed. It is best to call 48-72 hours in advance of needing a prescription refill so you don't run out of medication. To help control the post-operative pain, you may take NSAIDs (Aleve,Advil, Motrin, ibuprofen, naprosyn) or Tylenol as prescribed on the bottle in addition to the pain medication. ANTICOAGULATION (blood thinners): Continue your Aspirin, Lovenox or Coumadin as prescribed to help prevent a blood clot in the leg or in the lungs. As long as your incision remains dry and you tolerate the NSAIDs (Aleve, Advil, Motrin, Ibuprofen, Naprosyn), it is OK to use the NSAIDS while you are taking your anticoagulation medication. Should your incision start to drain, stop the NSAID and contact our office. Common symptoms of blood clot in the legs include: localized pain, swelling, calf tenderness, redness or discoloration of the skin. Blood clot in the lung symptoms include: shortness of breath, rapid pulse, sweating, and chest pain that worsens with deep breathing, coughing up blood, lightheadedness, feelings of anxiety. If you experience any of these symptoms notify your physician immediately, go to the emergency room, or if having trouble breathing, call 911. WOUND CARE: Leave the dressing on for 7 to 10days. You may change the dressing if it is saturated greater than 50%. Do not get the dressing wet at anytime. Wash your hands with antibacterial soap, rinse and dry prior to any wound care. If you have tete the visiting nurse or rehab facility can remove the stapes 10-14 days after surgery and place steri-strips across the wound. Leave the steri-strips in place until they fall off on their own. You may let water from the shower run on top of the steri-strips. If you do not have a visiting nurse or rehab facility, you will need to return to the office at 10-14 days for the tete to be removed. If you have itching or redness around the dressing call the office. FOLLOW-UP: Please follow up with your surgeon in the orthopedic clinic in 6 weeks from the day of surgery. If you have tete that need to be removed, you will need to come back to the office in 10-14 days from the day of surgery. Referrals: Ramsey Chase MD [Primary Care Provider] - Prescriptions: Ascorbic Acid [Vitamin C] 500 mg PO BIDWM #60 tablet Docusate [Colace] 100 mg PO BID #60 capsule Ferrous Sulfate 325 mg PO BIDWM #90 tablet Multivit/Ca/Min/Fe/FA [Thera M Plus] 1 tab PO DAILY #60 tablet
--- NOTE | 2018-04-09 10:51 | Discharge Summary ---
Orders not resulted at time of discharge: Pending orders 04/05/18 19:06 ECG 12 lead ECG [ECG] Routine 04/06/18 15:14 US anesthesia pain block [US] Routine 04/06/18 17:11 Surgical Pathology [PTH] Routine Date of Encounter: 04/09/18 Time of Encounter: 10:40 - Discharge Diagnosis (1) Closed left hip fracture Priority: Primary Status: Acute Assessment and Plan: 87 year old female who presented to the emergency department with left leg pain and hip pain. It started when she woke up this morning when she was trying to get out of bed. Patient was having pain she went shopping with her family and but her pain worse. Patient denied any trauma. She denied any fall. She does have a history of osteoporosis. She came into the emergency department for worsening pain. In the emergency room she was found to have left hip fracture. She had a left hip hemiarthroplasty on 04/06 and tolerated the procedure with no acute complications. She was seen by PT who recommended discharge to [facility]. She was discharged in a stable condition Qualifiers: Encounter type: initial encounter Qualified Code(s): S72.002A - Fracture of unspecified part of neck of left femur, initial encounter for closed fracture (2) Anemia due to acute blood loss Priority: Secondary Status: Acute (3) DVT prophylaxis Priority: Secondary Status: Acute Hospital course: Ms. Salcido is a 87 year old female - Time Spent with Patient Total time spent providing and/or coordinating discharge services: - Discharge Medications Prescriptions: Ascorbic Acid [Vitamin C] 500 mg PO BIDWM #60 tablet Docusate [Colace] 100 mg PO BID #60 capsule Ferrous Sulfate 325 mg PO BIDWM #90 tablet Multivit/Ca/Min/Fe/FA [Thera M Plus] 1 tab PO DAILY #60 tablet Home Medications: Aspirin [Lo-Dose Aspirin EC] 81 mg PO DAILY 10/02/16 [History] Atorvastatin [Lipitor] 40 mg PO HS 10/02/16 [History] Clopidogrel [Plavix] 75 mg PO DAILY 10/02/16 [History] Levothyroxine [Synthroid] 100 mcg PO HS 10/02/16 [History] Pantoprazole Sodium [Protonix] 40 mg PO DAILY 10/02/16 [History] Ropinirole HCl [Requip] 0.5 mg PO HS 10/02/16 [History] Ergocalciferol (VITAMIN D2) [Vitamin D2] 50,000 unit PO SA 10/04/16 [History] Gabapentin [Neurontin] 200 mg PO HS 10/04/16 [History] Furosemide [Lasix] 20 mg PO DAILY #30 tablet 10/05/16 [Rx] Acetaminophen/Diphenhydramine [Acetaminophen Pm Caplet] 2 tab PO HS PRN [History] Metoprolol XL (24 HR) Succ [Toprol Xl] 12.5 mg PO DAILY 09/02/17 [History] HYDROcodone/Acet 5/325 mg [[place] 5-325 mg] 1 tab PO Q8H PRN 04/05/18 [History] Magnesium Oxide [Magnesium] 400 mg PO BID 04/05/18 [History] Ascorbic Acid [Vitamin C] 500 mg PO BIDWM #60 tablet 04/09/18 [Rx] Docusate [Colace] 100 mg PO BID #60 capsule 04/09/18 [Rx] Ferrous Sulfate 325 mg PO BIDWM #90 tablet 04/09/18 [Rx] Multivit/Ca/Min/Fe/FA [Thera M Plus] 1 tab PO DAILY #60 tablet 04/09/18 [Rx] Allergies/Adverse Reactions: 3 Allergy/AdvReac Type Severity Reaction Status Date / Time metformin Allergy See Verified 04/05/18 17:34 Comments Sulfa (Sulfonamide AdvReac Confusion Verified 04/05/18 17:34 Antibiotics) Tizanidine AdvReac Drowsy Verified 04/05/18 17:34 Date of admission: 04/05/18 17:09 Primary care physician: Ramsey Chase MD Consults: 04/06/18 18:13 Consult to Nurse Navigator [CONS] Routine Comment: ortho navigator Consult to Occupational Therapy [CONS] Routine Comment: Evaluate, develop and implement POC Reason for Consult: total hip replacement Does patient have active BEDREST order?: No Is patient medically & hemodynamically stable?: Yes Consult to Physical Therapy [CONS] Routine Comment: Evaluate, develop and implement POC Reason for Consult: total hip replacement Does patient have active BEDREST order?: No Is patient medically & hemodynamically stable?: Yes Consult to Optical Instrument Specialist [CONS] Routine Reason for SW Consult: post op joint replacement RT Post Op Consult [CONS] Routine - Constitutional Vitals: Temp Pulse Resp BP Pulse Ox 98.0 F 84 16 122/71 95 04/09/18 06:41 04/09/18 06:41 04/09/18 06:41 04/09/18 06:41 04/09/18 06:41 General appearance: Present: A&O X 3, pleasant, no acute distress - Patient Status Disposition: Transfer SNF Condition: Good - Discharge Instructions Follow Up With: Ramsey Chase MD [Primary Care Provider] - Additional Instructions: Discharge Instructions: Total Hip Replacement Please call [facility] ([phone]), your Primary Care Physician, or report to the Emergency Room if you have any of the following symptoms: Nausea, vomiting, fever greater that 101.5, swelling, chest pain, shortness of breath, increased pain/redness/drainage/odor for your incision site, numbness/ tingling, or any other concerning symptoms. ACTIVITY:Weight-bearing as tolerated for 8 weeks with hip dislocation precautions that physical therapy taught you. You may progress as tolerated under the guidance of your physical therapist. You do not need to sleep with a pillow between your legs. You can also seep on the operative side or on your stomach. MEDICATIONS: Upon discharge resume your home medications. Take all the medications as prescribed. Take a stool softener if taking narcotic pain medications. Stool softeners are only effective if you drink enough fluids. Drink 6-8 glass of water or fluids a day, unless this is not allowed for another health problem. Despite using stool softeners, if you haven't had a bowel movement in 3 days, please switch to a gentle laxative. Gentle laxatives are sold over the counter. You should have a bowel movement within 24 hours, if not call the office. You will be discharged from the hospital with a prescription for pain medication. You are encouraged to decrease the use of narcotic pain medication as tolerated. Should you require a refill, please call the office. [facility] prescribes narcotic pain medication for only 4-6 weeks after surgery. If you require pain medication beyond this time period, you may be referred to your Primary Care Physician or to the Pain Clinic for further evaluation. Plan ahead for refills on pain medication as many narcotics either need to be picked up at the office or mailed. It is best to call 48-72 hours in advance of needing a prescription refill so you don't run out of medication. To help control the post-operative pain, you may take NSAIDs (Aleve,Advil, Motrin, ibuprofen, naprosyn) or Tylenol as prescribed on the bottle in addition to the pain medication. ANTICOAGULATION (blood thinners): Continue your Aspirin, Lovenox or Coumadin as prescribed to help prevent a blood clot in the leg or in the lungs. As long as your incision remains dry and you tolerate the NSAIDs (Aleve, Advil, Motrin, Ibuprofen, Naprosyn), it is OK to use the NSAIDS while you are taking your anticoagulation medication. Should your incision start to drain, stop the NSAID and contact our office. Common symptoms of blood clot in the legs include: localized pain, swelling, calf tenderness, redness or discoloration of the skin. Blood clot in the lung symptoms include: shortness of breath, rapid pulse, sweating, and chest pain that worsens with deep breathing, coughing up blood, lightheadedness, feelings of anxiety. If you experience any of these symptoms notify your physician immediately, go to the emergency room, or if having trouble breathing, call 911. WOUND CARE: Leave the dressing on for 7 to 10days. You may change the dressing if it is saturated greater than 50%. Do not get the dressing wet at anytime. Wash your hands with antibacterial soap, rinse and dry prior to any wound care. If you have tete the visiting nurse or rehab facility can remove the stapes 10-14 days [address] surgery [address] steri-strips across the wound. Leave the steri-strips in place until they fall off on their own. You may let water from the shower run on top of the steri-strips. If you do not have a visiting nurse or rehab facility, you will need to return to the office at 10-14 days for the tete to be removed. If you have itching or redness around the dressing call the office. FOLLOW-UP: Please follow up with your surgeon in the orthopedic clinic in 6 weeks from the day of surgery. If you have tete that need to be removed, you will need to come back to the office in 10-14 days from the day of surgery. - VTE Documentation of Mechanical Device: Venous foot pump, device
[2018-04-09 11:48] VITALS: BP 115/74
--- NOTE | 2018-04-09 14:41 | Physician Discharge Referral ---
- Diagnosis (1) Closed left hip fracture Priority: Primary Status: Acute (2) Anemia due to acute blood loss Status: Acute (3) DVT prophylaxis Status: Acute - Transfer Medications Prescriptions: Ascorbic Acid [Vitamin C] 500 mg PO BIDWM #60 tablet Docusate [Colace] 100 mg PO BID #60 capsule Ferrous Sulfate 325 mg PO BIDWM #90 tablet Multivit/Ca/Min/Fe/FA [Thera M Plus] 1 tab PO DAILY #60 tablet Home Medications: Aspirin [Lo-Dose Aspirin EC] 81 mg PO DAILY 10/02/16 [History] Atorvastatin [Lipitor] 40 mg PO HS 10/02/16 [History] Clopidogrel [Plavix] 75 mg PO DAILY 10/02/16 [History] Levothyroxine [Synthroid] 100 mcg PO HS 10/02/16 [History] Pantoprazole Sodium [Protonix] 40 mg PO DAILY 10/02/16 [History] Ropinirole HCl [Requip] 0.5 mg PO HS 10/02/16 [History] Ergocalciferol (VITAMIN D2) [Vitamin D2] 50,000 unit PO SA 10/04/16 [History] Gabapentin [Neurontin] 200 mg PO HS 10/04/16 [History] Furosemide [Lasix] 20 mg PO DAILY #30 tablet 10/05/16 [Rx] Acetaminophen/Diphenhydramine [Acetaminophen Pm Caplet] 2 tab PO HS PRN [History] Metoprolol XL (24 HR) Succ [Toprol Xl] 12.5 mg PO DAILY 09/02/17 [History] HYDROcodone/Acet 5/325 mg [[place] 5-325 mg] 1 tab PO Q8H PRN 04/05/18 [History] Magnesium Oxide [Magnesium] 400 mg PO BID 04/05/18 [History] Ascorbic Acid [Vitamin C] 500 mg PO BIDWM #60 tablet 04/09/18 [Rx] Docusate [Colace] 100 mg PO BID #60 capsule 04/09/18 [Rx] Ferrous Sulfate 325 mg PO BIDWM #90 tablet 04/09/18 [Rx] Multivit/Ca/Min/Fe/FA [Thera M Plus] 1 tab PO DAILY #60 tablet 04/09/18 [Rx] Allergies/Adverse Reactions: 3 Allergy/AdvReac Type Severity Reaction Status Date / Time metformin Allergy See Verified 04/05/18 17:34 Comments Sulfa (Sulfonamide AdvReac Confusion Verified 04/05/18 17:34 Antibiotics) Tizanidine AdvReac Drowsy Verified 04/05/18 17:34 - Respiratory Orders Smoking Cessation: Smoking cessation has been advised. For more information, call the [place] Tobacco Quit Line at 0-624-CXCY-NOW. - Mobility Orders Ambulate - Rehabiliation Orders Rehab Potential: Good CERTIFICATION: I certify that the transfer of the above named patient to an Extended Care Facility is necessary for the continuing treatment of the diagnosis listed. The above information is true and accurate reflection of patient's current condition. Confidential - Redisclosure prohibited without a patient's written consent.
== END 2018-04-09 17:41 | DRG 470 ==
LOC: EMEROO 15:15 → SUATTDRO 17:09 → 3NENU 17:09
PROVIDERS: ADMIT Hospitalist; ATTEND Hospitalist

== ENCOUNTER 2018-05-22 11:02 | Observation (INO) ==
[2018-05-22] MEDS ORDERED: *HR* Morphine Immed Rel 30 MG TABLET PO STA (11:15)
--- NOTE | 2018-05-22 11:18 | Emergency Department Note ---
Disposition Clinical Impression: Left hip pain, Unable to ambulate Disposition: Admitted As Inpatient Condition: Undetermined Time of Disposition: 14:41 Lower Extremity Injury HPI - General Chief Complaint: ED Extremity Injury, Lower Stated Complaint: Lt Hip pain Time Seen by Provider: 05/22/18 11:03 Source: patient, EMS Mode of arrival: EMS Limitations: no limitations Nursing Notes Reviewed: Yes Vital Signs Reviewed: Yes - History of Present Illness HPI Narrative: 87 year old female with history of left femur fracture and partial left hip replacement roughly 1 month ago. The patient complaining of left hip pain that started 2 days ago. No unable to bear weight. Currently lives at home after recent discharge from [facility] rehab. The patient denies any trauma or falls. States baseline paraesthesias of LLE. Denies any other complaints. - Related Data Home Medications Medication Instructions Recorded Confirmed Aspirin [Lo-Dose Aspirin EC] 81 mg PO DAILY 10/02/16 05/22/18 Atorvastatin [Lipitor] 40 mg PO HS 10/02/16 05/22/18 Clopidogrel [Plavix] 75 mg PO DAILY 10/02/16 05/22/18 Levothyroxine [Synthroid] 100 mcg PO QAM 10/02/16 05/22/18 Pantoprazole Sodium [Protonix] 40 mg PO DAILY 10/02/16 05/22/18 Ropinirole HCl [Requip] 0.5 mg PO HS 10/02/16 05/22/18 Ergocalciferol (VITAMIN D2) 50,000 unit PO SA 10/04/16 05/22/18 [Vitamin D2] Gabapentin [Neurontin] 200 mg PO HS 10/04/16 05/22/18 Acetaminophen/Diphenhydramine 2 tab PO HS PRN 09/02/17 05/22/18 [Acetaminophen Pm Caplet] Metoprolol XL (24 HR) Succ [Toprol 12.5 mg PO DAILY 09/02/17 05/22/18 Xl] Magnesium Oxide [Magnesium] 600 mg PO BID 04/05/18 05/22/18 Cyanocobalamin (Vitamin B-12) 2,500 mcg PO QAM 05/22/18 05/22/18 [Vitamin B12] Magnesium Oxide [Magnesium] 400 mg PO 1200 05/22/18 05/22/18 Previous Rx's Medication Instructions Recorded Furosemide [Lasix] 20 mg PO DAILY #30 tablet 10/05/16 Docusate [Colace] 100 mg PO BID #60 capsule 04/09/18 Ferrous Sulfate 325 mg PO BIDWM #90 tablet 04/09/18 HYDROcodone/Acet 5/325 mg [[place] 1 tab PO Q8H PRN 7 Days #30 tablet 04/09/18 5-325 mg] Allergies Allergy/AdvReac Type Severity Reaction Status Date / Time metformin Allergy See Verified 04/05/18 17:34 Comments Sulfa (Sulfonamide AdvReac Confusion Verified 04/05/18 17:34 Antibiotics) Tizanidine AdvReac Drowsy Verified 04/05/18 17:34 All systems ED: reviewed and negative except as stated. Constitutional: Denies: fever, chills ENT ED: Denies: dysphagia Cardiovascular: Denies: chest pain Respiratory: Denies: dyspnea Gastrointestinal: Denies: abdominal pain Genitourinary: Denies: urgency, dysuria Musculoskeletal: Reports: arthralgia, myalgia. Denies: back pain, neck pain, joint swelling Integumentary: Denies: rash Neurological: Reports: paresthesias. Denies: headache Past Medical History - Past Medical History Attestation: Yes The following information was validated with the patient. Source: patient Medical history: Reports: arthritis, CHF, coronary artery disease, GERD, hyperlipidemia, hypertension, myocardial infarction, renal disease, thyroid disease Surgical history: Reports: , cholecystectomy, heart valve replacement, hip replacement, hysterectomy, knee replacement Psychiatric history: Reports: anxiety, depression TECHNICAL CUSTOMER SUPPORT SPECIALIST history: Reports: no TECHNICAL CUSTOMER SUPPORT SPECIALIST history - Social History Smoking Status: Never smoker Smokeless Tobacco Status: No Alcohol use: Reports: none Drug use: Reports: none Physical Exam - General Limitations: no limitations General appearance: alert, in distress (Secondary to pain) - Head Head exam: atraumatic, normocephalic, normal inspection - Eye Eye exam: Present: normal appearance, PERRL, EOMI - ENT ENT exam: normal exam, normal oropharynx, mucous membranes moist - Neck Neck exam: Present: normal inspection, full ROM, trachea midline - Chest Chest inspection: Present: normal inspection, symmetric chest wall rise - Respiratory Respiratory exam: Present: normal lung sounds bilaterally - Cardiovascular Cardiovascular exam: Present: regular rate, normal rhythm, normal heart sounds - Abdominal Exam Abdominal exam: Present: soft, Non-Tender. Absent: tenderness, distention, guarding, rebound, rigidity - Extremities Exam Extremities exam: Present: tenderness (Left hip with intact incision. Full ROM with pain. Baseline paraesthesias. No erythema noted.) - Neurological Exam Neurological exam: Present: alert, oriented X3 - Skin Skin exam: Present: warm, dry, intact, normal color Course Vital Signs Temperature 98.0 F 05/22/18 11:04 Pulse Rate 88 05/22/18 11:04 Respiratory Rate 20 05/22/18 11:04 Blood Pressure 129/74 05/22/18 11:04 O2 Sat by Pulse Oximetry 97 05/22/18 11:04 Temperature 97.4 F L 05/22/18 16:12 Pulse Rate 77 05/22/18 16:12 Respiratory Rate 16 05/22/18 16:12 Blood Pressure 130/69 05/22/18 16:12 O2 Sat by Pulse Oximetry 95 05/22/18 16:12 Extremity Injury, Lower - MDM Narrative Medical decision making narrative: Agents workup in the emergency department demonstrates no fractures on x-ray, CT scan and no signs of abnormalities on DVT study of the left lower extremity. The patient was attempted to be ambulated in the emergency department but was unable to do so. The patient will have some labs drawn at this time for screening and be admitted to the hospital for further care and workup. The patient will likely need to go to a rehabilitation facility given the nature of her complaint. Accepted by Dr. Bardales. - Lab Data Lab results reviewed: Yes I reviewed the patient's lab results. Result diagrams: 05/22/18 14:07 05/22/18 14:07 Lab Results 05/22/18 05/22/18 Range/Units 14:07 14:07 WBC 4.8 (4.3-11.1) K/mcL RBC 3.73 L (3.82-4.97) M/mcL Hgb 12.1 (11.5-15.4) g/dL Hct 37.4 (35.3-44.9) % MCV 100.3 H (83.0-100.0) fL MCH 32.4 (28.0-33.3) pg MCHC 32.4 (31.6-35.5) g/dL RDW 12.7 (11.5-14.5) % Plt Count 180 (140-400) K/mcL MPV 9.5 (9.4-12.4) fL Immature Gran % 0.2 (0-4) % Seg Neutrophils % 67.4 % Lymphocytes % 19.0 % Monocytes % 9.5 % Eosinophils % 2.9 % Basophils % 1.0 % Neutrophils # 3.3 (1.6-8.9) K/mcL Lymphocytes # 0.9 (0.6-4.6) K/mcL Monocytes # 0.5 (0.0-1.3) K/mcL Eosinophils # 0.1 (0.0-0.6) K/mcL Basophils # 0.1 (0.0-0.2) K/mcL Sodium 139 (136-145) mEq/L Potassium 4.9 (3.5-5.1) mEq/L Chloride 104 (98-107) mEq/L Carbon Dioxide 31 H (23-29) mEq/L BUN 21 (8-23) mg/dL Creatinine 1.30 H (0.60-1.20) mg/dL Est GFR ( Amer) 47 L (> 60) Est GFR (Non-Af Amer) 39 L (> 60) BUN/Creatinine Ratio 16 (6-26) Glucose 113 H (70-105) mg/dL Calculated Osmolality 292 (280-300) Calcium 9.3 (8.6-10.3) mg/dL - Radiology Data Radiology results reviewed: Yes I reviewed the patient's radiology results. Hip X-Ray 05/22/18 11:09 IMPRESSION: No acute abnormality is identified. Status post bilateral total hip arthroplasty. Osteopenia. D/ / 05/22/2018 12:16:19 Beck Bailey MD / renata Interpreting Provider: Beck Bailey MD Pelvis CT 05/22/18 12:23 IMPRESSION: 1. No acute abnormality of the pelvis. 2. Status post bilateral total hip arthroplasties which limits evaluation. 3. Old healed fractures of the bilateral inferior pubic rami. 4. 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 D/ / Bebeto Salgado MD / Bebeto Salgado MD Interpreting Provider: Bebeto Salgado MD Attestation Statement - Attestation Attestation: I examined this patient and my medical decision-making was reviewed with the Resident Physician. I agree with the documented findings, disposition and treatment plan as described except to the extent set forth below. Findings consistent with leg pain. Duplexes show no evidence of DVT, x-ray shows no evidence of fracture. The patient does have significant pain and cannot ambulate given her deconditioned state and age we will admit for PT consultation and possible snf placement.
[2018-05-22 14:21] LABS: Basophils # 0.1 K/mcL (0.0-0.2); Eosinophils # 0.1 K/mcL (0.0-0.6); Eosinophils % 2.9 %; Hematocrit 37.4 % (35.3-44.9); Hemoglobin 12.1 g/dL (11.5-15.4); Immature Granulocytes % 0.2 % (0-4); Lymphocytes # 0.9 K/mcL (0.6-4.6); Mean Corpuscular HGB Conc 32.4 g/dL (31.6-35.5); Mean Corpuscular Hemoglobin 32.4 pg (28.0-33.3); Mean Corpuscular Volume 100.3 fL (83.0-100.0); Mean Platelet Volume 9.5 fL (9.4-12.4); Monocytes # 0.5 K/mcL (0.0-1.3); Monocytes % 9.5 %; Neutrophils # 3.3 K/mcL (1.6-8.9); Platelet Count 180 K/mcL (140-400); Red Blood Count 3.73 M/mcL (3.82-4.97); Red Cell Distribution Width 12.7 % (11.5-14.5); Segmented Neutrophils % 67.4 %
[2018-05-22 14:42] LABS: Calcium 9.3 mg/dL (8.6-10.3); Potassium 4.9 mEq/L (3.5-5.1)
[2018-05-22] MEDS ORDERED: Acetaminophen 325 MG TABLET PO PRN (17:15)
[2018-05-22] MEDS ORDERED: Naloxone 0.4 MG/ML INJ IVP PRN (17:44)
--- NOTE | 2018-05-22 17:52 | Internal Med History&Physical ---
Date of Encounter: 05/22/18 Time of Encounter: 17:49 Internal Medicine - H&P: HPI Chief complaint: Left hip/femur pain Admitted From: Home Plans for Post Hospital Care: Home History of present illness: Ms. Salcido is a 87 year old female who presents from home with a 2-day history of left hip/femur pain. The patient is status post left femur fracture and partial left hip replacement approximately one month ago. She was recently discharged home from [facility] rehabilitation. The patient states that upon discharge she was ambulatory with assistive devices and had greater use of her left lower extremity. She reports that 2 days ago she began experiencing pain behind her left knee and into her left vastus. This morning she noticed that she was having difficulty bearing weight and decreased range of motion of her left lower extremity. She reports that the pain is aggravated with use of left lower extremity and alleviated with rest. Workup in the ED included pelvis CT which was negative for acute abnormality, hip x-ray which was also negative for acute abnormality. She is being admitted for further evaluation and will need PT/OT was also services consult. Patient will benefit from discharge to rehabilitation. Past Med Surg Social Fam HX - Past Medical History Medical history: arthritis, CHF, coronary artery disease, GERD, hyperlipidemia, hypertension, myocardial infarction, renal disease, thyroid disease Additional medical history: osteoarthritis Psychiatric history: anxiety, depression - Past Surgical History Surgical History: , cholecystectomy, heart valve replacement, hip replacement, hysterectomy, knee replacement Additional surgical history: heart valve replacement - Social History Smoking Status: Never smoker Smokeless Tobacco Status: No Alcohol use: none Drug use: none - Family History Mother Living Status: Hx Family Cancer: Yes Father Hx Family Cardiac Disorders: Yes Internal Medicine - H&P: Meds Aspirin [Lo-Dose Aspirin EC] 81 mg PO DAILY 10/02/16 [History] Atorvastatin [Lipitor] 40 mg PO HS 10/02/16 [History] Clopidogrel [Plavix] 75 mg PO DAILY 10/02/16 [History] Levothyroxine [Synthroid] 100 mcg PO QAM 10/02/16 [History] Pantoprazole Sodium [Protonix] 40 mg PO DAILY 10/02/16 [History] Ropinirole HCl [Requip] 0.5 mg PO HS 10/02/16 [History] Ergocalciferol (VITAMIN D2) [Vitamin D2] 50,000 unit PO SA 10/04/16 [History] Gabapentin [Neurontin] 200 mg PO HS 10/04/16 [History] Furosemide [Lasix] 20 mg PO DAILY #30 tablet 10/05/16 [Rx] Acetaminophen/Diphenhydramine [Acetaminophen Pm Caplet] 2 tab PO HS PRN [History] Metoprolol XL (24 HR) Succ [Toprol Xl] 12.5 mg PO DAILY 09/02/17 [History] Magnesium Oxide [Magnesium] 600 mg PO BID 04/05/18 [History] Docusate [Colace] 100 mg PO BID #60 capsule 04/09/18 [Rx] Ferrous Sulfate 325 mg PO BIDWM #90 tablet 04/09/18 [Rx] HYDROcodone/Acet 5/325 mg [[place] 5-325 mg] 1 tab PO Q8H PRN 7 Days #30 tablet [Rx] Cyanocobalamin (Vitamin B-12) [Vitamin B12] 2,500 mcg PO QAM 05/22/18 [History] Magnesium Oxide [Magnesium] 400 mg PO 1200 05/22/18 [History] 3 Allergy/AdvReac Type Severity Reaction Status Date / Time metformin Allergy See Verified 04/05/18 17:34 Comments Sulfa (Sulfonamide AdvReac Confusion Verified 04/05/18 17:34 Antibiotics) Tizanidine AdvReac Drowsy Verified 04/05/18 17:34 All Systems PM: A 10-system review of systems was performed and is negative for pertinent findings except as documented above in the HPI. Review of systems: REVIEW OF SYSTEMS GENERAL: Negative for any nausea, vomiting, fevers, chills, or weight loss. NEUROLOGIC: Negative for any blurry vision, blind spots, double vision, facial asymmetry, dysphagia, dysarthria, hemiparesis, hemisensory deficits, vertigo, Muscular skeletal: As per history of present illness RHEUMATOLOGIC: Negative for photosensitive rashes, history of vasculitis or kidney problems. HEMATOLOGIC: Negative for any abnormal bruising, frequent infections or bleeding. - Constitutional Vitals: Temp Pulse Resp BP Pulse Ox 97.4 F L 77 16 130/69 95 05/22/18 16:12 05/22/18 16:12 05/22/18 16:12 05/22/18 16:12 05/22/18 16:12 General appearance: Present: A&O X 3 Exam: Musculoskeletal: Limitations to range of motion of left lower extremity, mild tenderness to left calf as well as tenderness behind left knee. No joint swelling or erythema noted. No ecchymosis or erythema/cellulitis noted to left lower extremity. Pulses 2+ palpable throughout popliteal, PT/DP bilaterally - Respiratory Respiratory exam: Present: CTAB. Absent: accessory muscle use, rales, rhonchi, wheezes - Cardiovascular Cardiovascular exam: Present: RRR, +S1, +S2. Absent: diastolic murmur, gallop, rubs, systolic murmur - GI/Abdominal GI/Abdominal exam: Present: normal bowel sounds, soft, no peritoneal signs. Absent: distended, tenderness - Extremities Exam Extremities exam: Present: warm, radial pulses palpable and symmetrical. Absent : calf tenderness, cyanotic, pedal edema - Neurological Exam Neurological exam: Present: alert. Absent: normal gait, facial droop, speech deficit Internal Med - H&P Results - Labs CBC & Chem 7: 05/22/18 14:07 05/22/18 14:07 - Assessment and plan (1) Ambulatory dysfunction Current Visit: Yes Status: Acute Assessment and plan: Ambulatory dysfunction secondary to left leg pain; etiology unclear Patient reports that for the last 2 days she has had increasing pain in the left calf and Left knee as well as a decreased range of motion She reports that it is difficult to bear weight and even with the assistance of DME difficult to ambulate She is status post left hip repair approximately one month ago She was discharged from [facility] to home reports that she is not having any difficulties until the last 2 days Left lower extremity Doppler ultrasounds ordered preliminary negative for DVT Pelvis CTA negative for acute abnormality of the pelvis, status post bilateral total hip arthroplasties, old healed fractures of the bilateral inferior pubic rami and a multi degenerative disc disease and faster of arthropathy in the lower lumbar spine with 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 Manage pain with [place] 5/325 every 8 hours when necessary for moderate pain in acetaminophen for mild pain Heparin for DVT prophylaxis Up to chair daily (2) Left leg pain Current Visit: Yes Status: Acute Assessment and plan: See above - Time Spent With Patient Total time spent is greater than 50% in coordination of care (as documented) at patient's floor/unit and/or counseling patient: less than 15 minutes
[2018-05-22] MEDS: *HR* Heparin 5,000 UNIT/ML VIAL SQ SCH (19:06)
[2018-05-22 21:05] LABS: Bilirubin,Urine Negative (Negative); Blood,Urine Negative (Negative); Clarity,Urine Clear (Clear); Color,Urine Yellow (Yellow); Glucose,Urine (UA) Normal (Normal); Ketones,Urine Negative (Negative); Leukocyte Esterase,Urine Negative (Negative); Nitrite,Urine Negative (Negative); PH,Urine 7.5 pH Units (5.0-8.0); Protein,Urine Negative (Neg-Trace); Specific Gravity,Urine 1.013 (1.010-1.025); Urobilinogen,Urine Normal (Normal)
--- NOTE | 2018-05-22 21:21 | Orthopedic Consult Note ---
Date of Encounter: 05/22/18 Time of Encounter: 17:00 Assessment and Plan (1) Left leg pain Current Visit: Yes Status: Acute 1 month s/p Left Hip Hemiarthroplasty with secondary to Femur fracture. Patient recently discharged from ECF in stable condition, with increased activity leading to worsening of left leg pain. She has since improved since admission but is having difficulty with ambulation. Studies have all been normal at this point. We will get Left knee xray secondary to her discomfort on exam. Incision well healed, no indication of infection at this time. Labs WNL with the exception of kidney dysfunction. Plan for PT/OT to see in AM and evaluate for ECF need. Stable from orthopedic standpoint. Doppler negative. Continue with hip precautions. Tylenol for pain control. AVoid NSAIDS secondary to kidney dysfunction. Foot pumps for DVT sufficient. F/up in the AM. Discussed and reviewed case with . History of Present Illness Chief complaint: Left Hip Pain HPI: Ms. Salcido is a 87 year old female, A&O x 3, approximately 1 month s/p Left Hip fracture and Left hip hemiarthroplasty. She was discharged last month to ECF in stable condition, and seen approx 3 weeks ago doing well. She reports to ED today c/o 2 days of Left lower leg pain and difficulty with ambulation secondary to pain. Pain resides primarily along posterior aspect of lower leg and knee with achey pain along left hip. Patient states she was discharged on Monday from ECF to home and went shopping with her daughter. She feels some of this pain may relate to her drastic increase in activity. She has been participating in PT/OT at facility with some difficulty prior to being released. She denies N/T, Denies radiation of pain to opposing leg. Admits to difficulty with hip and knee ROM secondary to pain. Admits to calf pain. She has a history of discoloration to bilateral lower extremites and she is currently on Plavix. She denies hx of DVT Hip XRAY - show good components, stable alignment, no dislocation present. Hip CT - reviewed - stable Doppler - per ED report was negative, still awaiting final results. LLE Exam: Incision well healed, no erythema noted. No drainage. Minimal tenderness along hip and greater Trochanteric region, no fluctuance noted. No visible deformity +tenderness to posterior calf, no warmth noted. Knee ROM - intact, painfree but stiffness noted. Hip ROM - limited but relatively pain free. Stiffness noted. NV intact distally. Past Med Surg Social Fam HX - Past Medical History Medical history: arthritis, CHF, coronary artery disease, GERD, hyperlipidemia, hypertension, myocardial infarction, renal disease, thyroid disease Additional medical history: osteoarthritis Psychiatric history: anxiety, depression - Past Surgical History Surgical History: , cholecystectomy, heart valve replacement, hip replacement, hysterectomy, knee replacement Additional surgical history: heart valve replacement - Social History Smoking Status: Never smoker Smokeless Tobacco Status: No Alcohol use: none Drug use: none - Family History Mother Living Status: Hx Family Cancer: Yes Father Living Status: Hx Family Cardiac Disorders: Yes Medications and Allergies Aspirin [Lo-Dose Aspirin EC] 81 mg PO DAILY 10/02/16 [History] Atorvastatin [Lipitor] 40 mg PO HS 10/02/16 [History] Clopidogrel [Plavix] 75 mg PO DAILY 10/02/16 [History] Levothyroxine [Synthroid] 100 mcg PO QAM 10/02/16 [History] Pantoprazole Sodium [Protonix] 40 mg PO DAILY 10/02/16 [History] Ropinirole HCl [Requip] 0.5 mg PO HS 10/02/16 [History] Ergocalciferol (VITAMIN D2) [Vitamin D2] 50,000 unit PO SA 10/04/16 [History] Gabapentin [Neurontin] 200 mg PO HS 10/04/16 [History] Furosemide [Lasix] 20 mg PO DAILY #30 tablet 10/05/16 [Rx] Acetaminophen/Diphenhydramine [Acetaminophen Pm Caplet] 2 tab PO HS PRN [History] Metoprolol XL (24 HR) Succ [Toprol Xl] 12.5 mg PO DAILY 09/02/17 [History] Magnesium Oxide [Magnesium] 600 mg PO BID 04/05/18 [History] Docusate [Colace] 100 mg PO BID #60 capsule 04/09/18 [Rx] Ferrous Sulfate 325 mg PO BIDWM #90 tablet 04/09/18 [Rx] HYDROcodone/Acet 5/325 mg [[place] 5-325 mg] 1 tab PO Q8H PRN 7 Days #30 tablet [Rx] Cyanocobalamin (Vitamin B-12) [Vitamin B12] 2,500 mcg PO QAM 05/22/18 [History] Magnesium Oxide [Magnesium] 400 mg PO 1200 05/22/18 [History] 3 Allergy/AdvReac Type Severity Reaction Status Date / Time metformin Allergy See Verified 04/05/18 17:34 Comments Sulfa (Sulfonamide AdvReac Confusion Verified 04/05/18 17:34 Antibiotics) Tizanidine AdvReac Drowsy Verified 04/05/18 17:34 All Systems Reviewed: The remainder of the systems were reviewed and are negative - Constitutional Constitutional: weakness, no fever(s), no frequent falls - Cardiovascular Cardiovascular: no chest pain, no syncope - Musculoskeletal Musculoskeletal: as per HPI Physical Exam - Constitutional Vitals: Temp Pulse Resp BP Pulse Ox 97.5 F L 75 14 111/70 95 05/22/18 19:13 05/22/18 19:13 05/22/18 19:13 05/22/18 19:13 05/22/18 19:13 General appearance IM: A&O X 3, no acute distress, thin, answers questions appropriately - Hip left Gait: other Results - Labs Result Diagrams: 05/22/18 14:07 05/22/18 14:07 Labs: Abnormal lab results RBC 3.73 M/mcL (3.82-4.97) L 05/22/18 14:07 MCV 100.3 fL (83.0-100.0) H 05/22/18 14:07 Carbon Dioxide 31 mEq/L (23-29) H 05/22/18 14:07 Creatinine 1.30 mg/dL (0.60-1.20) H 05/22/18 14:07 Est GFR ( Amer) 47 (> 60) L 05/22/18 14:07 Est GFR (Non-Af Amer) 39 (> 60) L 05/22/18 14:07 Glucose 113 mg/dL (70-105) H 05/22/18 14:07 All other labs normal. - Diagnostic results Hip x-ray: report reviewed, image reviewed Hip CT: report reviewed, image reviewed Consult Discharge Plan - Plan Referrals: Ramsey Chase MD [Primary Care Provider] -
[2018-05-22] MEDS: *HR* HYDROcodone/Acet 5/325 mg TABLET PO PRN (23:23)
[2018-05-23 01:19] LABS: Mean Corpuscular HGB Conc 32.4 g/dL (31.6-35.5); Mean Corpuscular Hemoglobin 33.1 pg (28.0-33.3); Mean Corpuscular Volume 102.2 fL (83.0-100.0); Platelet Count 179 K/mcL (140-400); Red Blood Count 3.62 M/mcL (3.82-4.97); Red Cell Distribution Width 12.7 % (11.5-14.5)
[2018-05-23 01:36] LABS: Calcium 9.3 mg/dL (8.6-10.3); Potassium 4.7 mEq/L (3.5-5.1)
[2018-05-23] MEDS: *HR* Heparin 5,000 UNIT/ML VIAL SQ SCH ×2 (06:13→18:37)
--- NOTE | 2018-05-23 12:34 | Internal Med Progress Note ---
Hospitalist Progress Note - Encounter Date of Encounter: 05/23/18 Time of Encounter: 12:34 - Subjective Interval History: No acute changes. Continues to report left lower extremity weakness but states that it is improving today - Exam Vitals: Temp Pulse Resp BP Pulse Ox 97.8 F 81 16 129/78 96 05/23/18 09:58 05/23/18 09:58 05/23/18 09:58 05/23/18 09:58 05/23/18 09:58 Exam: PHYSICAL EXAMINATION: GENERAL: The patient is a well-developed, well-nourished male in no apparent distress. He is alert and oriented x3. HEENT: Head is normocephalic and atraumatic. Extraocular muscles are intact. Pupils are equal, round, and reactive to light and accommodation. Nares appeared normal. Mouth is well hydrated and without lesions. NECK: Supple. No carotid bruits. No lymphadenopathy or thyromegaly. LUNGS: Clear to auscultation. HEART: Regular rate and rhythm without murmur. ABDOMEN: Soft, nontender, and nondistended. Positive bowel sounds. No hepatosplenomegaly was noted. EXTREMITIES: Without any cyanosis, clubbing, rash, lesions or edema. NEUROLOGIC: Cranial nerves II through XII are grossly intact. LLE weakness persists but is improving PSYCHIATRIC: Flat affect, but denies suicidal or homicidal ideations. SKIN: No ulceration or induration present. - Assessment and Plan (1) Ambulatory dysfunction Current Visit: Yes Status: Acute Assessment and Plan: Ambulatory dysfunction secondary to left leg pain; etiology unclear Patient reports that for the last 2 days she has had increasing pain in the left calf and Left knee as well as a decreased range of motion She reports that it is difficult to bear weight and even with the assistance of DME difficult to ambulate She is status post left hip repair approximately one month ago She was discharged from [facility] rehabilitation to home reports that she is not having any difficulties until the last 2 days Left lower extremity Doppler ultrasounds ordered preliminary negative for DVT Pelvis CTA negative for acute abnormality of the pelvis, status post bilateral total hip arthroplasties, old healed fractures of the bilateral inferior pubic rami and a multi degenerative disc disease and faster of arthropathy in the lower lumbar spine with 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 Manage pain with [place] 5/325 every 8 hours when necessary for moderate pain in acetaminophen for mild pain Heparin for DVT prophylaxis Up to chair daily 05/23--clinically, the patient's LLE strength and range of motion has improved since my assessment yesterday. PT/OT evaluated and recommended SNF for rehabilitation. Was informed that the patient did not complete her full rehabilitation services during the last admission d/t financial restraints. At the present moment she is refusing to return to inpatient rehabilitation. I have discussed this with the social media designer team and plan to discuss this with family. I believe that the patient is a risk to return home immediately identified care for herself and will therefore suffer from further functional decline. I believe that since she has been at personal care home administrator care for herself this is what led to her current condition and functional decline. Continue plan as stated above (2) Left leg pain Current Visit: Yes Status: Acute Assessment and Plan: See above - Time Spent with Patient Total time spent is greater than 50% in coordination of care (as documented) at patient's floor/unit and/or counseling patient: less than 15 minutes Plan of Care Discussed with: patient Internal Medicine: Result - Labs CBC & Chem 7: 05/23/18 01:00 05/23/18 01:00 Labs: Short CBC 05/23/18 Range/Units 01:00 WBC 3.8 L (4.3-11.1) K/mcL Hgb 12.0 (11.5-15.4) g/dL Hct 37.0 (35.3-44.9) % Plt Count 179 (140-400) K/mcL BMP 05/23/18 01:00 Sodium 137 Potassium 4.7 Chloride 105 Carbon Dioxide 27 BUN 23 Creatinine 1.22 H Glucose 135 H Calcium 9.3 Urine 05/22/18 Range/Units 20:45 Urine Color Yellow (Yellow) Urine Clarity Clear (Clear) Urine pH 7.5 (5.0-8.0) pH Units Ur Specific [place] 1.013 (1.010-1.025) Urine Protein Negative (Neg-Trace) mg/dL Urine Glucose (UA) Normal (Normal) mg/dL - Impressions Impressions Knee X-Ray 05/22/18 21:29 IMPRESSION: 1. No acute osseous abnormality of the left knee. 2. Prior left knee arthroplasty. No evidence of hardware failure or loosening. D/ / Nelson Guerrier / Nelson Guerrier Interpreting Provider: Nelson Guerrier Consult Discharge Plan - Plan Referrals: Ramsey Chase MD [Primary Care Provider] -
[2018-05-23] MEDS ORDERED: Acetaminophen 325 MG TABLET PO PRN (20:06)
[2018-05-23] MEDS ORDERED: rOPINIRole 0.25 MG TABLET PO SCH (21:00)
[2018-05-23] MEDS ORDERED: Gabapentin 100 MG CAPSULE PO SCH (21:00)
[2018-05-23] MEDS: *HR* HYDROcodone/Acet 5/325 mg TABLET PO PRN (21:38)
[2018-05-24] MEDS: *HR* HYDROcodone/Acet 5/325 mg TABLET PO PRN (04:48)
[2018-05-24] MEDS: *HR* Heparin 5,000 UNIT/ML VIAL SQ SCH (04:51)
[2018-05-24] MEDS ORDERED: Metoprolol XL (24 HR) Succ 25 MG TAB.ER.24H PO SCH (09:00)
[2018-05-24] MEDS ORDERED: Aspirin Enteric Coated 81 MG Tablet PO SCH (09:00)
[2018-05-24] MEDS ORDERED: Cyanocobalamin (B-12) 1,000 MCG TABLET PO SCH (09:00)
--- NOTE | 2018-05-24 10:57 | Discharge Summary ---
- NOTES TO OUTPATIENT PROVIDER Notes to Outpatient Provider: Patient admitted for weakness of LLE. Received inpt. rehabilitation in past but does not wish to continue at this time. Discussed possible home health/rehabilitation, however pt. and family would like to continue self-exercises and strengthening themselves. Will add home health later if warranted. Date of Encounter: 05/24/18 Time of Encounter: 10:55 - Discharge Diagnosis (1) Ambulatory dysfunction Priority: Primary Status: Acute (2) Left leg pain Priority: Primary Status: Acute Hospital course: Ms. Salcido is a 87 year old female who presented for admission d/t weakness of the LLE and difficulty w/ambulation. Pts. family state that the pt. completed inpt. rehabilitation recently and they were told pt. was progressing well. Pts. son feels pts. leg pain is transient d/t leg cramps in pts. hx. Pt. states that she uses a walker to help w/ambulation and her son and [id number] state they take care of the pts. medications and check on her repeatedly throughout the day as they live next door and monitor her via baby monitor when they are not there. Pt. states that she is feeling better and wishes to be discharged home to continue her home exercises and strengthening w/family. Discussed increased risk for falls w/pt. and family d/t LLE weakness and the need for further strengthening and monitoring to prevent further injury. Ortho has signed off on pt. Pt. and family expressed understanding to plan of care and were instructed to consider home health rehabilitation if warranted in the future. Discharge discussed with: patient, family - Time Spent with Patient Total time spent providing and/or coordinating discharge services: Less than 30 minutes Specific discharge activities: Follow-up w/PCP within one week from discharge to monitor pts. progress. - Discharge Medications Home Medications: Aspirin [Lo-Dose Aspirin EC] 81 mg PO DAILY 10/02/16 [History] Atorvastatin [Lipitor] 40 mg PO HS 10/02/16 [History] Clopidogrel [Plavix] 75 mg PO DAILY 10/02/16 [History] Levothyroxine [Synthroid] 100 mcg PO QAM 10/02/16 [History] Pantoprazole Sodium [Protonix] 40 mg PO DAILY 10/02/16 [History] Ropinirole HCl [Requip] 0.5 mg PO HS 10/02/16 [History] Ergocalciferol (VITAMIN D2) [Vitamin D2] 50,000 unit PO SA 10/04/16 [History] Gabapentin [Neurontin] 200 mg PO HS 10/04/16 [History] Furosemide [Lasix] 20 mg PO DAILY #30 tablet 10/05/16 [Rx] Acetaminophen/Diphenhydramine [Acetaminophen Pm Caplet] 2 tab PO HS PRN [History] Metoprolol XL (24 HR) Succ [Toprol Xl] 12.5 mg PO DAILY 09/02/17 [History] Magnesium Oxide [Magnesium] 600 mg PO BID 04/05/18 [History] Docusate [Colace] 100 mg PO BID #60 capsule 04/09/18 [Rx] Ferrous Sulfate 325 mg PO BIDWM #90 tablet 04/09/18 [Rx] HYDROcodone/Acet 5/325 mg [[place] 5-325 mg] 1 tab PO Q8H PRN 7 Days #30 tablet [Rx] Cyanocobalamin (Vitamin B-12) [Vitamin B12] 2,500 mcg PO QAM 05/22/18 [History] Magnesium Oxide [Magnesium] 400 mg PO 1200 05/22/18 [History] Allergies/Adverse Reactions: 3 Allergy/AdvReac Type Severity Reaction Status Date / Time metformin Allergy See Verified 04/05/18 17:34 Comments Sulfa (Sulfonamide AdvReac Confusion Verified 04/05/18 17:34 Antibiotics) Tizanidine AdvReac Drowsy Verified 04/05/18 17:34 Date of admission: 05/22/18 14:47 Primary care physician: Ramsey Chase MD Consults: 05/22/18 17:12 Consult to Physical Therapy [CONS] Routine Comment: Evaluate, develop and implement POC Reason for Consult: eval and treat Does patient have active BEDREST order?: No Is patient medically & hemodynamically stable?: Yes 05/22/18 17:14 Consult to Occupational Therapy [CONS] Routine Comment: Evaluate, develop and implement POC Reason for Consult: eval and treat Does patient have active BEDREST order?: No Is patient medically & hemodynamically stable?: Yes 05/22/18 17:15 Consult to Rehabilitation Worker [CONS] Routine Reason for SW Consult: discharge planning Discharging clinician: Tyler Alfonso Anticipated date of discharge: 05/24/18 - Constitutional Vitals: Temp Pulse Resp BP Pulse Ox 98.3 F 86 16 126/78 96 05/24/18 06:58 05/24/18 06:58 05/24/18 06:58 05/24/18 06:58 05/24/18 06:58 General appearance: Present: cooperative, A&O X 3, pleasant, no acute distress, answers questions appropriately - Head Head exam: Present: atraumatic, normocephalic - Eye Eye exam: Present: PERRL, conjuntiva pink, sclera anicteric Pupils: Present: PERRL - ENT ENT exam: Present: normal exam - Neck Neck exam general surgery: Present: supple, trachea midline. Absent: lymphadenopathy - Respiratory Respiratory exam: Present: CTAB. Absent: accessory muscle use, rales, rhonchi, wheezes - Cardiovascular Cardiovascular exam: Present: RRR, +S1, +S2. Absent: diastolic murmur, gallop, rubs, systolic murmur - GI/Abdominal GI/Abdominal exam: Present: normal bowel sounds, soft, no peritoneal signs. Absent: distended, tenderness - Rectal Rectal exam: Present: deferred - Additional comments: exam deferred. - Extremities Exam Extremities exam: Present: warm, radial pulses palpable and symmetrical. Absent : calf tenderness, cyanotic, pedal edema - Back Exam Back exam: Present: normal inspection - Neurological Exam Neurological exam: Present: alert, CN II-XII intact, oriented X3, no focal deficits. Absent: pronater drift, facial droop, speech deficit - Psychiatric Psychiatric exam: Present: normal affect, normal mood - Skin Skin exam: Present: dry, intact - Patient Status Disposition: Home, Self-Care Condition: Good Functional capacity at discharge: uses cane/walker Overall status at discharge: patient is back to baseline - Discharge Instructions Follow Up With: Ramsey Chase MD [Primary Care Provider] - - Diet and Activity Activity: ambulate only with your walker, increase activity as tolerated Diet: advance to your usual diet
[2018-05-24 11:55] VITALS: BP 129/73
== END 2018-05-24 12:37 | disposition home or self-care (01) ==
LOC: EMEROO 11:02 → 3BNU 11:02 → 3NENU 15:27
PROVIDERS: ADMIT Internal Medicine; ATTEND Internal Medicine